=== PATIENT | male | born 1945 | race Caucasian/White ===

== ENCOUNTER 2018-03-10 07:46 | Inpatient (IN) | payer MEDICARE ==
--- NOTE | ~2018-03-10 | PR ---
[place], [place] PROGRESS NOTE NAME: KAYE JANG SR [facility] #: [id number] UNIT #: [id number] ROOM: [facility] DOCTOR: TATIANNA OTOOLE MD,JOHN BIRTHDATE: [birth year] DOS: 03/13/2018 SUBJECTIVE: The patient has remained in the hospital at this time noted intermittent mild tachycardia and also noted with hypertensive response. The patient's urinary output has improved with intravenous fluids. He has been sedated with intravenous Diprivan. Sedation was continued at this time with IV Diprivan. Feeding was continued. He had not been noted any respiratory problem from the last 24 hours. No further changes in the respiratory parameters were done in the last 12 hours. PHYSICAL EXAMINATION: GENERAL: The patient of 72 years of age who has been currently intubated on mechanical ventilator at this time. Orogastric tube is in place. Endotracheal tube is in place. NECK: Supple and obese. CARDIOVASCULAR: S1, S2 is audible. LUNGS: Noted with general reduction in the breath sounds in the lungs bilaterally. Scattered wheezing. ABDOMEN: Soft with severe obesity. Bowel sounds present. EXTREMITIES: The patient noted without any acute edema. MUSCULOSKELETAL: Without acute deformities. CENTRAL NERVOUS SYSTEM: Noted with a reactive normal mental status, reduction of sedation/sedation vacation. LABORATORY DATA: CBC this morning, WBC count 11.6, hemoglobin and hematocrit, platelet count were normal. Echocardiogram that was completed yesterday, results were reviewed. It was noted with a left ventricle ejection about 65%. Diastolic dysfunction could not be assessed. There were no valvular abnormalities noted. CMP this morning, glucose 349, BUN 45, creatinine 1.22. Total protein of 5.8, albumin 2.9. AST of 60. Culture of the endotracheal aspirate light growth of yeast. Arterial blood gas today, pH of 7.31, PCO2 of 63.9, PO of 79.6. Chest x-ray that was done this morning was reviewed, does not show any acute pulmonary abnormalities. IMPRESSION: 1. The patient has been noted severe acute hypercapnic and hypoxemic respiratory failure. 2. Acute exacerbation of chronic obstructive pulmonary disease. 3. Severe obstructive sleep apnea disorder. 4. Chronic moderate obesity. 5. Resolution of acute kidney injury. 6. History of nicotine dependence. 7. Intermittent tachycardia and hypertensive response. PLAN OF MANAGEMENT: Discontinue the IV fluid rather at this time because of the creatinine. Prevent any fluid overload and further fluid administration. Continue current dose of Solu-Medrol. Continue mechanical ventilator for the next 24 hours with the weaning will be started from tomorrow with further improvement as of course, the patient in the ventilatory status. Gradual improvement in ventilatory status was noted with improvement in hypercapnia and [place], [place] PROGRESS NOTE NAME: KAYE JANG SR UNIT #: [id number] ROOM: [facility] DOCTOR: TATIANNA OTOOLE MD,JOHN BIRTHDATE: [birth year] pH. Continuation all over the ventilator bundle management. Continue sedation to keep the patient comfortable. No change in antibiotic will be necessary. Other supportive therapy, plan and additional changes would be made based on progression of the illness. No changes for the patient in the nutrition support. Continue the medical management of hyperglycemia, which are noted, somewhat improved with adjustment. Continued with insulin and other medications for the medical management of severe hyperglycemia. Total time in pulmonary critical management for the patient was 33 minutes. JOHN CAMPUZANO MD CM:PNIFEOMA [id number] JOHN OTOOLE MD 03/13/18 1444 interface
--- NOTE | ~2018-03-10 | PROC NOTE ---
[place], [place] PROCEDURE NOTE [id number] UN[facility] #: [id number] ROOM: [facility] DOCTOR: TATIANNA OTOOLE MD,JOHN BIRTHDATE: [birth year] DOS: 03/15/2018 PROCEDURE: Fiberoptic bronchoscopy. PREOPERATIVE DIAGNOSIS: Excessive wheezing with thick secretion production from endotracheal tube. POSTOPERATIVE DIAGNOSIS: Removal of the moderate to large amount of thick mucus impaction of major airways. No endobronchial obstructive lesion. FINDINGS: Acute tracheobronchitis. PROCEDURE DESCRIPTION: Procedure for this patient done in the OR under general anesthesia. He was brought to the OR and placed in supine position. Conscious sedation administered by the Anesthesia Department. After achieving proper sedation, airway introduced in the mouth. Bronchoscope advanced to the airway into laryngeal area. Epiglottis and vocal cords were seen. The vocal cord was moving symmetrically with movements. Bronchoscope advanced to vocal cords into the tracheal lumen. Tracheal lumen noted with moderate amount of thick mucus secretion suctioned out with inflammatory changes of the tracheal mucosa was noted. Kellie was noted sharp. The right upper, right middle, left upper, lingula, lower lobe bronchi were noted with diffuse edema with inflammatory changes and friability. Mucous impaction noted in endobronchial tree. All of the subsegments cleared with the help of normal saline wash, sent for cultures. Procedure well tolerated by the patient without difficulty. Postoperative findings were discussed with the patient and family members in detail after completion of procedure. The bronchial washing sent for cultures. JOHN CAMPUZANO MD CM:PROCNOTE:PROCEDURE NOTE [id number] JOHN OTOOLE MD
--- NOTE | ~2018-03-10 | PR ---
[place], [place] PROGRESS NOTE NAME: KAYE JANG SR UNIT #: [id number] ROOM: 415 DOCTOR: JOHN LOYA MD BIRTHDATE: [birth year] DOS: 03/20/2018 SUBJECTIVE: He has been noted comfortable at this time. Continue well. The patient's current medical management. Denies symptoms of fever, chills, hemoptysis. The shortness of breath has been improving. He has been ambulating, increased dyspnea. The patient with shortness of breath. There was no wheezing reported. There were no symptoms of chest pain reported by the patient. He has been continued on the oxygen supplementation with the nasal cannula. OBJECTIVE: VITAL SIGNS: For the patient, which has been recorded showed the temperature was noted as normal. The respiratory rate of the patient recorded as 18, heart rate 88, blood pressure 112/64 this morning. Pulse oxygen saturation on 2 L nasal cannula was 98% saturation. HEENT: Chronic obesity. NECK: Supple and obese. CARDIOVASCULAR: S1, S2 audible. LUNGS: Without any crackles, rhonchi, or wheezing. ABDOMEN: Soft, nontender. Bowel sounds present. EXTREMITIES: No acute edema. IMPRESSION: Stable respiratory status was noted at the present time with progressive improvement acute on chronic severe hypoxemic and hypoxic respiratory failure, resolving muscle decondition debility secondary to acute illness. PLAN OF MANAGEMENT: Continuation of current therapy, plan of management at this time as in progress. The patient has been considered for possible home discharge today by the primary care attending. FOLLOWUP APPOINTMENT: The patient to be established with [facility] where he is normally followed up pulmonary disease. [place], [place] PROGRESS NOTE NAME: KAYE JANG SR UNIT #: [id number] ROOM: 415 DOCTOR: JOHN LOYA MD BIRTHDATE: [birth year] JOHN CAMPUZANO MD CM:PNTRANS [id number] JOHN OTOOLE MD 03/31/18 0835 interface
--- NOTE | ~2018-03-10 | PROC NOTE ---
[place], [place] PROCEDURE NOTE [id number] #: [id number] ROOM: [facility] DOCTOR: MALU ECHEVERRIA DO BIRTHDATE: [birth year] DOS: 03/11/2018 PROCEDURE: Emergent endotracheal intubation. PROCEDURE NOTE: A 72-year-old male currently admitted to the hospitalist service. I was consulted to assist in intubating the patient because of worsening respiratory failure. The procedure was performed by resident, Dr. Kaplan under my direct supervision. Rapid sequence intubation was performed using succinylcholine and rocuronium. A size 8 endotracheal tube was inserted into the trachea with direct visualization of the vocal cords. There was good color change on the CO2 detector. Breath sounds equal bilaterally. A chest x-ray is ordered for tube placement. No complications during the procedure. MALU ECHEVERRIA DO CM:PROCNOTE:PROCEDURE NOTE [id number] MALU ECHEVERRIA DO
--- NOTE | ~2018-03-10 | PR ---
[place], [place] PROGRESS NOTE NAME: KAYE JANG SR UNIT #: [id number] ROOM: 415 DOCTOR: JOHN LOYA MD BIRTHDATE: [birth year] DOS: 03/19/2018 PULMONARY PROGRESS NOTE SUBJECTIVE: The patient was noted comfortable at this time, sitting on the chair, ambulating, using oxygen supplementation and nasal cannula about 3-4 liters at rest. Denies symptoms of chest pain. Shortness breath, cough, and wheezing have been improving progressively. OBJECTIVE: VITAL SIGNS: Normal temperature, respiratory rate 18, heart rate 105, blood pressure 116/60. Pulse oxygen saturation recorded as 90% saturation on 3 liters nasal cannula. HEENT: Head was atraumatic. Eyes nonicterus. NECK: Supple. CARDIOVASCULAR SYSTEM: S1, S2 audible. LUNGS: The patient was noted without any wheezing or crackle. Breaths are noted [id number] diminished bilaterally. ABDOMEN: Soft, nontender. Bowel sounds present. EXTREMITIES: No acute change. LABORATORY DATA: CBC: WBC count 14.4, hemoglobin 16.2. IMPRESSION: 1. The patient with continued resolution and improvement in acute on chronic hypercapnic hypoxic respiratory failure. 2. Polycythemia, resolved because of chronic long-term hypoxia. 3. Nonadherence with the treatment. 4. Sleep apnea disorder, history of nicotine dependence, multiple other medical problems. 5. Debility, muscle deconditioning second chronic obstructive pulmonary disease, and acute exacerbation of respiratory failure, resolving. PLAN OF TREATMENT: The patient could be considered for home discharge whenever desired and stable from the pulmonary standpoint. Continue other therapy, plan of management. Abstinence from tobacco use was recommended. [place], [place] PROGRESS NOTE NAME: KAYE JANG SR UNIT #: [id number] ROOM: 415 DOCTOR: JOHN LOYA MD BIRTHDATE: [birth year] JOHN CAMPUZANO MD CM:PNTRANS [id number] JOHN OTOOLE MD 03/20/18 0016 interface
--- NOTE | ~2018-03-10 | CON ---
[place], [place] REPORT OF CONSULTATION NAME: KAYE JANG SR [facility] #: [id number] UNIT #: [id number] ROOM: [facility] DOCTOR: JOHN LOYA MD BIRTHDATE: [birth year] DOS: 03/11/2018 PULMONARY CONSULTATION, EVALUATION AND MANAGEMENT HISTORY OF PRESENT ILLNESS: The patient is currently noted on the BiPAP, is in distress and tachypnea. The history obtained partly from the son and partly from the patient. He has been noted with getting progressive increased respiratory symptoms for the past 2-3 days. He has developed symptoms of increased shortness of breath, which is occurring at rest. The patient was also reporting symptoms of coughing, which was noted nonproductive with excessive wheezing, tightness in the chest. He does complain of some pain in the retrosternal area, mild to moderate as well. The patient came into the hospital Emergency Room and further assessed. He has been admitted to the hospital for the medical management of acute on chronic hypercapnic and hypoxic respiratory failure. The patient has been managed in the Intensive Care Unit on the BiPAP. The BiPAP setting has been changed early couple of hours ago. He has been still noted with significant tachypnea with drowsiness, but does arouse the patient on vocal commands and answered some questions by nodding his head or the arm gestures. REVIEW OF SYSTEMS: CONSTITUTIONAL SYMPTOMS: Fatigue and tiredness noted without any symptoms of fever or chills. EYES: Denies burning, redness, or tenderness. EARS, NOSE, THROAT SYMPTOMS. Denies sore throat, hoarseness, otalgia, postnasal drainage, or epistaxis. CARDIOVASCULAR SYSTEM: Denies anginal pain. Pain of the lower extremity, mild edema of the lower extremity were reported. GASTROINTESTINAL SYMPTOMS: Denies dysphagia, nausea, vomiting, diarrhea, abdominal pain, hematemesis, melena, or hematochezia. GENITOURINARY SYMPTOMS: No dysuria, suprapubic pain, or hematuria. MUSCULOSKELETAL SYMPTOMS: No acute joint pain, redness, or tenderness. SKIN: No lesions or rashes reported. CENTRAL NERVOUS SYSTEM: General weakness. There were no symptoms of focal neurologic deficit or tingling sensation of the extremities reported. Remaining systems were reviewed. They were noted all negative. PAST MEDICAL HISTORY: 1. Known with history of end-stage COPD. 2. Chronic hypoxic respiratory failure, not adherent with the treatment of oxygen. 3. Chronic hypercapnic respiratory failure. 4. Morbid obesity. 5. Obstructive sleep apnea disorder. 6. Coronary artery disease. 7. Essential hypertension. 8. Hyperlipidemia. 9. Peripheral arterial disease. 10. Type 2 diabetes mellitus. [place], [place] REPORT OF CONSULTATION NAME: KAYE JANG SR UNIT #: [id number] ROOM: [facility] DOCTOR: TATIANNA OTOOLE MD,JOHN BIRTHDATE: [birth year] PAST SURGICAL HISTORY: 1. Cardiac catheterization and coronary stents insertion. 2. Right iliac artery stent placement and angioplasty. SOCIAL HISTORY: The patient lives at home. He is noted with tobacco use, that remains chronic, a pack of cigarettes a day since teenager with an active tobacco use. There was no history of alcohol use, illicit drug use reported. FAMILY HISTORY: The patient's father with complication of colon cancer. Mother from complications related to the heart disease. HOME MEDICATIONS: Listed use of Spiriva, simvastatin, potassium chloride, oxygen, metoprolol succinate, metformin, Imdur, aspirin, Symbicort, vitamin B12, and TriCor. DRUG ALLERGIES: No known drug allergies. PHYSICAL EXAMINATION: GENERAL: This is a 72-year-old white male who has been currently noted with tachypnea at rest, on the BiPAP at this time. The height recorded on admission by the nursing staff with height of 5 feet 6 inches, weight of 229, and BMI of 37. VITAL SIGNS: Normal temperature since admission in the last 12 hours, respiratory rate of 24-28, heart rate of 117, sinus tachycardia to 102, blood pressure 129/62-123/60. Pulse oxygen saturation was recorded as 88% on 3 liters nasal cannula on admission. Currently, the BiPAP 50% with oxygen saturation 95-96% saturation recorded. HEENT: Severe chronic obesity. NECK: Supple. Head was atraumatic. Eyes, no icterus. CARDIOVASCULAR SYSTEM: S1, S2 audible. LUNGS: Diffuse expiratory wheezing noted with poor air exchange in the lungs bilaterally. There were no crackles. ABDOMEN: Soft with chronic severe obesity. Bowel sounds present. There was no tenderness. EXTREMITIES: Mild edema in the lower extremities. VISIBLE SKIN: No lesions or rashes. MUSCULOSKELETAL: Without any acute deformities. CENTRAL NERVOUS SYSTEM: The patient is able to move extremities with the vocal commands. There was no gross focal deficit. Further exam is limited with current medical condition. LABORATORY DATA: The influenza A and B, nasal washing antigen negative. On admission, CMP on 03/10/2018 yesterday in the Emergency normal BUN and creatinine. Remaining CMP was normal. The lactic acid 1.0 yesterday. CBC yesterday; hemoglobin 17.7, hematocrit 53.9, WBC count normal, platelet count was normal. CBC this morning; WBC count 11.5, hemoglobin 17.3, hematocrit 55.2, platelet count was normal. BMP this morning; glucose 225, BUN and creatinine were normal, potassium 5.6. Follow up lactic acid 0.9. Arterial blood gas that was done first in the Emergency Room last night; pH of 7.26, pCO2 of 52, pO2 79 [place], [place] REPORT OF CONSULTATION NAME: LAINE TURNERKAYE Rodas UNIT #: [id number] ROOM: [facility] DOCTOR: TATIANNA OTOOLE MD,JOHN BIRTHDATE: [birth year] on 8 liters nasal cannula. Repeat arterial blood gas; pH of 7.12, pCO2 of 102, pO2 102 with BiPAP. BMP that was done this morning; glucose of 220, potassium 5.2 and CO2 of 34. There were repeated later on. Chest x-ray does not show any acute pulmonary infiltration. CT of the chest does not show any evidence of pulmonary embolism as well. Small infiltration with atelectasis noted in the right lower lobe for the patient without any evidence of gross major pulmonary infiltration. There were no findings of congestive heart failure or pulmonary edema. There were no visible pulmonary nodules. IMPRESSION: The patient who has been currently admitted to the hospital noted with: 1. Progressive severe acute on chronic hypercapnic and hypoxic respiratory failure with distress. 2. Sinus tachycardia related to current respiratory distress. 3. The patient with possibility of acute small pneumonia versus atelectasis of the right lower lobe was suspected. 4. Morbid obesity. 5. Polycythemia secondary to chronic hypoxia and hypoxemia. 6. Nonadherence with oxygen use. 7. Chronic moderate obesity. 8. Chronic nicotine dependence. 9. Obstructive sleep apnea disorder, nonadherence with the treatment as well. 10. Metabolic alkalosis secondary to chronic hypercapnia. PLAN OF MANAGEMENT: The patient's setting on the BiPAP has been changed 18/02 that will be continued for the next 2 hours. Arterial blood gas will be repeated if the patient would not show improvement in his respiratory status and remains in distress. The patient will be intubated and started on mechanical ventilation. The CBC needs to be monitored. The patient has been started on corticosteroids that will be changed to 40 mg q.6 hours in addition to Solu-Medrol 40 mg will be given now. Bronchodilator will be given every 4 hours. DVT prophylaxis. Nicotine replacement patches will be continued. Collect the sputum for Gram stain and culture if the patient is able to expectorate sputum. Use of the Rocephin and Zithromax should suffice the patient for the community-acquired infection including the pneumonia. Other therapy, treatment changes will be recommended based on progression of the illness. Assessment and management has been discussed with the patient's son at the bedside. Total time in pulmonary and critical care evaluation and management today was 42 minutes. [place], [place] REPORT OF CONSULTATION NAME: KAYE JANG SR UNIT #: [id number] ROOM: [facility] DOCTOR: JOHN LOYA MD BIRTHDATE: [birth year] JOHN CAMPUZANO MD CM:CONSTR:REPORT OF CONSULTATION 1419 03/12/18 0106 interface
--- NOTE | ~2018-03-10 | PR ---
[place], [place] PROGRESS NOTE NAME: KAYE JANG SR [facility] #: [id number] UNIT #: [id number] ROOM: 415 DOCTOR: TATIANNA OTOOLE MD,JOHN BIRTHDATE: [birth year] DOS: 03/14/2018 SUBJECTIVE: The patient remains on mechanical ventilation at this time. He has been continued on steroids, bronchodilators and assist control, volume control of mechanical ventilation. Sedation was continued. The patient morning was noted with partial improvement is nodding his head with the vocal commands. He has been noted some restlessness later on. The patient was started on CPAP 5 pressure support can, but after that the patient was noted with increased respiratory distress and hypoxia. He was switch back to the assist control, volume control, and mechanical ventilation after about 10 minutes. He has been resumed on sedation as well. MENTAL STATUS: The patient appeared to be normal at this time. The patient has not been reported any acute hemodynamic instability. Tolerating feeding. No other acute problems were noted in the last 24 hours as the patient continued on steroids, bronchodilators and the medical management of acute exacerbation of COPD. OBJECTIVE: VITAL SIGNS: For the patient which were recorded showed the temperature was noted as 99.6 degree Fahrenheit, respiration 18, heart rate 99, and blood pressure 144/70-144/70. Pulse oxygen saturation recorded as 95% on 40% oxygen. HEENT: Examination shows head was atraumatic. Eyes nonicterus. NECK: Supple. It was obese. The patient remain orally intubated. Gastric tube is in place. CARDIOVASCULAR: S1, S2 audible. LUNGS: Noted moderate expiratory wheezing in the lungs bilaterally. There were no crackles. ABDOMEN: Noted with chronic severe obesity. EXTREMITIES: Chronic changes without any significant edema at this time. VISIBLE SKIN: No lesions or rashes. MUSCULOSKELETAL: Noted without any acute deformities. CENTRAL NERVOUS SYSTEM: Appears to have a normal mental status. The patient current sedation vacation. LABORATORY DATA: The patient's arterial blood gas this morning, pH of 7.38, pCO2 of 57, pO2 of 75.4 with 40% oxygen assist control, volume control. Urine for Legionella antigen and strep antigen were negative. CMP this morning, BUN 38, creatinine was normal, glucose 314. Potassium 5.4. CO2 was 34. CBC of this morning, WBC count 11.6, hemoglobin and hematocrit normal. Platelet count was normal. IMPRESSION: 1. The patient will be currently noted with ongoing acute exacerbation of chronic obstructive pulmonary disease and acute tracheobronchitis. 2. Severe acute hypercapnic and hypoxemic respiratory failure as well. 2. Morbid obesity. 3. Obstructive sleep apnea disorder. 4. Nicotine dependence. 5. Resolving secondary polycythemia. [place], [place] PROGRESS NOTE NAME: KAYE JANG SR UNIT #: [id number] ROOM: [facility] DOCTOR: JOHN LOYA MD BIRTHDATE: [birth year] 6. Improving metabolic alkalosis. 7. Mild hyperkalemia as well. 8. Prerenal azotemia with elevation of the BUN related to the use of the corticosteroids. 9. Chronic moderate obesity. PLAN OF THERAPY: The patient will be continued on sedation and mechanical ventilation, assist control mode of mechanical ventilation, current failure with weaning attempt. The patient has been considered for the bronchoscopy done tomorrow morning to assess endobronchial tree and then to help with weaning process. Other supportive therapy, plan of management, care plan for the patient to be continued. Continuation ventilator bundle management. Continuation of the volume control, assist control, and mechanical ventilation. No change in the oxygen needs to be done. Other supportive therapy, plan of management and treatment to be made; otherwise, usual care, other supportive plan of therapies. Total time in pulmonary critical management for today's note was 37 minutes. JOHN CAMPUZANO MD CM:PNTRANS [id number] JOHN OTOOLE MD 03/31/18 0827 interface
--- NOTE | ~2018-03-10 | PR ---
[place], [place] PROGRESS NOTE NAME: KAYE JANG SR [facility] #: [id number] UNIT #: [id number] ROOM: [facility]- DOCTOR: TATIANNA OTOOLE MD,JOHN BIRTHDATE: [birth year] DOS: 03/16/2018 PULMONARY CRITICAL CARE EVALUATION AND MANAGEMENT SUBJECTIVE: The patient remains on the mechanical ventilator, noted with some hypoxia today, and oxygen supplementation was increased initially to 50%, later on increased to 45%, noted with pulse oxygen saturation 95-96% at the bedside. He has been noted without any other acute changes. There were no hemodynamic instability. Sedation was continued. Reduction in sedation for the patient's mental status has been noted appropriate with the sedation medication which was done today. He has not been noted any problem with the feeding as well. Bronchoscopy was completed yesterday successfully with removal of thick mucopurulent material from the patient's mucus impaction of major airways bilaterally. At noon, the patient had been assessed, was noted comfortable on mechanical ventilator, sedated gently at this time without any respiratory distress. PHYSICAL EXAMINATION: VITAL SIGNS: Which were recorded showed the temperature noted as normal, respiratory rate ranged between 18-22, heart rate of 106-102 with mild sinus tachycardia, blood pressure 139/75 to 112/73. Intake for the patient was recorded as 1.68 liters with 2500 mL, negative 800 mL. Pulse oxygen saturation on 45% oxygen was 95% saturation at noon later on. HEENT: Showed the patient remained orally intubated with gastric tube in place. NECK: Supple and obese. CARDIOVASCULAR: S1 and S2 audible. LUNGS: Decreased breath sounds in the lungs bilaterally. Mild expiratory wheezing. No crackles. ABDOMEN: Soft and obese. EXTREMITIES: The patient with chronic obesity and chronic changes without significant edema. MUSCULOSKELETAL: Without any acute deformities. CENTRAL NERVOUS SYSTEM: At this time, the patient is sedated. LABORATORY DATA: CBC this morning, WBC count 12.2, hemoglobin and hematocrit normal, platelet count was normal. CMP of this morning, glucose 333, BUN 39, creatinine was normal, potassium 5.6 and still elevated, CO2 of 36, albumin 2.2. Arterial blood gas with pH of 7.41, pCO2 of 55.4, pO2 78.3 on assist control, volume control, mechanical ventilation, 45% oxygen. Preliminary culture of bronchial washing with normal chandan, final culture results are pending. Gram stain of the bronchial washing of yesterday, many white blood cells and moderate budding yeast. Chest x-ray this morning was reviewed, shows endotracheal tube in proper position. There were no acute pulmonary infiltration or other acute abnormalities; hyperinflation and lung changes of COPD. IMPRESSION: 1. The patient with acute on chronic severe hypercapnic hypoxemic respiratory failure. 2. Acute exacerbation of chronic obstructive pulmonary disease. 3. Acute tracheobronchitis. [place], [place] PROGRESS NOTE NAME: [facility] [id number] UNIT #: [id number] ROOM: [facility] DOCTOR: TATIANNA OTOOLE MD,JOHN BIRTHDATE: [birth year] 4. Metabolic alkalosis, noted chronic. 5. Mild hyperkalemia also noted at this time. Exact etiology is unclear at the present time. 6. Chronic obesity as well with obstructive sleep apnea disorder. 7. Nicotine dependence. PLAN OF THERAPY: The patient will be started on CPAP of 5, pressure support of 10 at this time for 2 hours. Sedation will be gradually decreased and discontinued. Monitor mental status and physical status. Arterial blood gas will be assessed as well. Monitor hyperkalemia, which is noted mild. Other supportive therapy, plan of management, and care plan with additional treatment changes made based on progression of illness. Continue ventilator bundle management and nutrition support. Gradual reduction of steroids will be started, decrease Solu-Medrol to 40 mg b.i.d. dosing from today. Weaning will be continued with possible liberation of mechanical ventilation with use of BiPAP machine afterwards. Other therapy, plan of management and care for this patient with additional treatment changes will be made based on the progression of his illness. Assessment and management were discussed with the patient's 2 sons in detail at the bedside. Total time in pulmonary critical evaluation and management was 40 minutes. JOHN CAMPUZANO MD CM:PNTRANS [id number] JOHN OTOOLE MD 03/16/18 7354 interface
--- NOTE | ~2018-03-10 | EKG ---
[place], [place] ELECTROCARDIOGRAM REPORT NAME: KAYE JANG SR UNIT #: [id number] ROOM: [facility] DOCTOR: MICKY DRAFT REPORT BIRTHDATE: [birth year] [facility] Test Date: 2018-03-10 Test Time: 08:23:42 Pat Name: KAYE JANG Department: Room: [facility] Gender: M Sole Tacker: Haylie Marcos : 1945 Requested By: ESPERANZA ZHOU Order Number: [id number] Reading MD: Abe Light MD Measurements Intervals [place] Rate: 100 P: 103 ID: [id number] QRS: 174 QRSD: 160 T: 28 QT: 408 QTc: 527 Interpretive Statements Multifocal atrial tachycardia Right bundle branch block Electronically Signed On 03-11-2018 16:51:21 PST by Abe Light MD CM:EKGRPT:ELECTROCARDIOGRAM REPORT [id number] ESPERANZA WEEKS DRAFT REPORT ESPERANZA ZHOU MD
--- NOTE | ~2018-03-10 | PR ---
[place], [place] PROGRESS NOTE NAME: KAYE JANG SR [facility] #: [id number] UNIT #: [id number] ROOM: [facility] DOCTOR: TATIANNA OTOOLE MD,JOHN BIRTHDATE: [birth year] DOS: 03/17/2018 PULMONARY PROGRESS NOTE SUBJECTIVE: The patient has been successfully liberated from mechanical ventilator. BiPAP was used post-liberation mechanical ventilator and continued for several hours, kept n.p.o. until the assessment completed for the swallowing difficulty post-extubation. He has been noted awake and alert this morning, noted to be quite emotional since his is also treated in another hospital with acute medical illnesses. Shortness of breath has been improving. Denies symptoms of chest pain or fever. The cough has been noted mild. There were no symptoms of abdominal pain. Denies symptoms of nausea, vomiting, diarrhea, abdominal pain, hematemesis, melena, or hematochezia. General weakness and fatigue were noted. Remaining systems review were noted at the bedside and noted negative. OBJECTIVE: VITAL SIGNS: Normal temperature, respiratory rate of 20-18, heart rate of 84-108. Blood pressure 111/71-120/60. Pulse oxygen saturation was recorded on nasal cannula this morning on 3 liters 95%, BiPAP 95% saturation with 45% oxygen with the BiPAP. HEENT: Chronic obesity. NECK: Supple. Head was atraumatic. CARDIOVASCULAR: S1, S2 is audible. LUNGS: The patient was noted with decreased breath sounds in the lungs bilaterally. Mild expiratory wheezing. ABDOMEN: Soft and obese. EXTREMITIES: Chronic changes with venous stasis pigmentation changes as well. MUSCULOSKELETAL: Without acute deformity. CENTRAL NERVOUS SYSTEM: Cranial nerves 2-12 intact. LABORATORY DATA: The labs done on the patient today; WBC count 14.2, remaining CBC normal. Bronchoscopy final culture results with heavy growth of yeast. Arterial blood gas yesterday post-BiPAP of 2 hours; pH of 7.43, pCO2 50, pO2 68. The arterial blood gases with CPAP mode of mechanical ventilation prior to liberation of mechanical ventilation; pH of 7.44, pCO2 of 54, pO2 75. IMPRESSION: 1. Significant improvement continued for acute on chronic hypercapnic hypoxic respiratory failure, status post liberation of mechanical ventilator 24 hours ago. 2. Acute tracheobronchitis. 3. Hypercarbia metabolic alkalosis. 4. Secondary polycythemia with longstanding hypoxemia, possible lack use of oxygen at home settings, which has been also improved at this time. 5. Debility. PLAN OF MANAGEMENT: Continue use of BiPAP, not intubated during the day. Discontinue Springer catheter. Discontinue Peridex rinse. Continue current dose of steroids, bronchodilators. Physical therapy, occupational therapy [place], [place] PROGRESS NOTE NAME: KAYE JANG SR UNIT #: [id number] ROOM: [facility] DOCTOR: JOHN LOYA MD BIRTHDATE: [birth year] consultation. The patient may be transferred to the Telemetry floor later on the day if he does well. JOHN CAMPUZANO MD CM:PNTRANS [phone] JOHN OTOOLE MD 03/17/18 8000 interface
--- NOTE | ~2018-03-10 | PR ---
[place], [place] PROGRESS NOTE NAME: KAYE JANG SR [facility] #: [id number] UNIT #: [id number] ROOM: [facility] DOCTOR: JOHN LOYA MD BIRTHDATE: [birth year] DOS: 03/12/2018 PULMONARY CRITICAL CARE MANAGEMENT SUBJECTIVE: The patient was intubated shortly after the patient was seen and the arterial blood gases were reviewed, which shows very severe advanced hypercapnia and noted respiratory distress, tachypnea. The patient intubated and started on mechanical ventilation. Change in mechanical ventilation done, arterial blood gases assessment for the adequate improvement in the ventilation. The final change was made last evening, resulting in improvement in ventilatory status. The patient has been requiring high dose of intravenous Diprivan and also ordered Versed, combination for the sedation purposes. He has been noted comfortable at this time on the mechanical ventilator this morning. The patient has not been noted any symptoms of any new hemodynamic instability. The vasopressor were not needed. He has been continued on the ventilator bundle management post-intubation. The oxygenation was decrease gradually to maintain pulse ox 92% or greater. PHYSICAL EXAMINATION: VITAL SIGNS: In the last 24 hours the rectal temperature noted 100.2 degrees Fahrenheit, oral temperature 100.6 degree Fahrenheit, normal temperature intervening noted in the last 24 hours, respiratory rate of 16-22, heart rate of 119-105, mild tachycardia, blood pressure 107/51-128/60. Intake for the patient was noted as 1320, output 1100 mL. Pulse oxygen saturation recorded as 94% saturation with 45% oxygen supplementation. HEENT: Examination shows currently intubated, remains intubated at this time. Endotracheal tube is in place, used for the feeding. CARDIOVASCULAR: S1, S2 is audible. LUNGS: General reduction in the breath sounds with expiratory wheezing. There were no crackles. ABDOMEN: Chronic obesity was noted without any evidence of tenderness elicited. Bowel sounds were not present. EXTREMITIES: Chronic obesity. Minimal edema. MUSCULOSKELETAL: Noted without any acute deformities. CENTRAL NERVOUS SYSTEM: At this time, the patient was noted with mental status. Opening his eyes with the vocal commands. Reduction of sedation per nursing staff and sedation vacation. Intake is 1920 mL. Urinary output was noted a total of 1050 mL. LABORATORY DATA: Arterial blood gases that will done. The last arterial blood gas last evening pH of 7.20, pCO2 of 81, pO2 of 252 at that time with 70% oxygen. Arterial blood gas this morning, tidal volume 650 mL, rate of 16 and PEEP of 8, pH is 7.28, pCO2 of 65, pO2 of 101 with 45% oxygen. Endotracheal as per patient, many white blood cells, few epithelial cells, rare gram-positive cocci in pairs. CMP this morning, BUN 42, creatinine 2.06. Glucose of 405. Potassium of 5.4. Total protein of 6.1, magnesium 2.5. One view chest x-ray that was done this morning reviewed, endotracheal tube were noted in appropriate position. Basilar area of interstitial infiltration was noted. IMPRESSION: [place], [place] PROGRESS NOTE NAME: LAINE TURNERKAYE Clark [facility] #: [id number] UNIT #: [id number] ROOM: [facility] DOCTOR: TATIANNA OTOOLE MD,JOHN BIRTHDATE: [birth year] 1. The patient with severe [id number]-li-iqyfxrb hypercapnic and hypoxemic respiratory failure. 2. Acute exacerbation of chronic obstructive pulmonary disease. 3. The patient with morbid obesity. 4. Acute kidney injury secondary to intravascular volume depletion or other etiologies, remains in consideration including acute tubular necrosis to be excluded. 5. History of obstructive sleep apnea disorder. 6. History of chronic nicotine dependency. 7. Severe hyperglycemia related to the corticosteroids. 8. Absent bowel sounds. PLAN OF MANAGEMENT: The Solu-Medrol dose will be decreased this morning to q.8h, intravenous fluid to be continued with close monitoring and fluid overload. Bronchodilators to be continued. Continue current antibiotic, all the ventilator bundle management, and trophic feeding. Continuation of DVT prophylaxis. Other supportive plan of management continued as previously. Management of hyperglycemia, adjustment the insulin doses. Additional treatment changes will be made based on progression of illness. A KUB x-ray ultrasound of the abdomen will be obtained. The feeding will be held for this patient in case of ileus noted, otherwise it could be continued same level. There was a feeding of Pulmocare 20 mL daily. Pulmonary and critical evaluation and management. Total time in pulmonary critical care evaluation was 38 minutes. JOHN CAMPUZANO MD CM:PNTRANS [phone] JOHN OTOOLE MD 03/12/18 1856 interface
--- NOTE | ~2018-03-10 | PR ---
[place], [place] PROGRESS NOTE NAME: KAYE JANG SR [facility] #: [id number] UNIT #: [id number] ROOM: 415 DOCTOR: TATIANNA OTOOLE MD,JOHN BIRTHDATE: [birth year] DOS: 03/15/2018 PULMONARY AND CRITICAL CARE EVALUATION AND MANAGEMENT SUBJECTIVE: The patient remains on mechanical ventilator, was scheduled for bronchoscopy, planned to be done this morning. He has not been noted with hemodynamic instability. Respiratory lin, the patient remained on same mechanical ventilator settings, gradual improvement, ventilatory status was noted. He has been kept n.p.o. past midnight and bronchoscopy to be done today. He has not been noted with any hemodynamic instability, requiring vasopressor therapy. Solu-Medrol and other medical management continued previously. The patient is currently receiving Solu-Medrol 40 mg q.8 hours. He was also receiving the antibiotics. Ventilator bundle management also continued as well and the patient remained in the Intensive Care Unit. REVIEW OF SYSTEMS: Could not be completed as the patient is intubated. OBJECTIVE: VITAL SIGNS: Temperature of 99.2 degree Fahrenheit, normal temperature; respiratory rate of 16-22, heart rate of 99-101, mild tachycardia intermittently; blood pressure is 150/79-123/75. The intake of 1120 mL and output is 2950 mL. The pulse oxygen saturation on 40% oxygen, assist control, volume control, and mechanical ventilation is 92% saturation. HEENT: On examination, the patient is intubated. The patient is on endotracheal tube. NECK: Supple. Orogastric tube is in place. NECK: Obese. CARDIOVASCULAR SYSTEM: S1, S2 audible. LUNGS: Moderate decreased breath sounds, qrxj-jo-ubguzdsk expiratory wheezing continues to resolve gradually. ABDOMEN: Soft and obese. EXTREMITIES: Chronic obesity findings. MUSCULOSKELETAL: Without any acute deformities. CENTRAL NERVOUS SYSTEM: The patient noted with mental status, which has been noted improved, appear to follow some vocal commands with a sedation vacation and reduction of sedation. LABORATORY DATA: Reviewed. Arterial blood gas that was done this morning on assist control and volume control, pH of 7.41, pCO2 of 57, and pO2 of 69 on 40% oxygen. Blood culture, no bacterial growth from the 03/10/2018. CMP of this morning, BUN is 40, creatinine is normal, glucose is 353, potassium is 5.6, and CO2 is 35. Urine for Legionella antigen was noted negative. IMAGING DATA: The chest x-ray that was done, 1 view this morning was reviewed. Endotracheal tube in appropriate position was noted. Small infiltration was noted in the left lower lobe versus atelectasis. IMPRESSION: 1. The patient with acute tracheobronchitis, possibility of pneumonia and/or atelectasis in left lower lobe. [place], [place] PROGRESS NOTE [facility]: [facility] [id number] UNIT #: [id number] ROOM: [facility] DOCTOR: TATIANNA OTOOLE MD,JOHN BIRTHDATE: [birth year] 2. Severe acute hypercapnic hypoxemic respiratory failure secondary to acute exacerbation of chronic obstructive pulmonary disease. 3. Past nicotine dependence. 4. Morbid obesity with obstructive sleep apnea disorder. 5. Metabolic alkalosis noted secondary to chronic hypercarbia, which has been gradually improving. 6. Secondary polycythemia that was noted on admission, seemed to be resolved at this time. PLAN OF MANAGEMENT: Continuation of the current plan of management. Proceed with fibrobronchoscopy that was planned on this admission will be done today. Bronchodilator will be continued. The oxygen supplementation continued to be titrated to maintain pulse ox 92% or greater. Weaning the patient from mechanical ventilator after the bronchoscopy. Continue current dose of Solu-Medrol, dose reduction will be done most likely in the next 24 hours. No changes in antibiotics. Ventilator bundle management to be continued as previously. Nutritional support will be continued and trophic feeding. Assessment of medical management changes made based on progression of the illness. Total time in pulmonary and critical care evaluation and management today is 35 minutes. JOHN CAMPUZANO MD CM:PNTRANS [phone] JOHN OTOOLE MD 03/31/18 0831 interface
--- NOTE | ~2018-03-10 | PR ---
[place], [place] PROGRESS NOTE [id number] #: [id number] ROOM: 415 DOCTOR: TATIANNA OTOOLE MD,JOHN BIRTHDATE: [birth year] DOS: 03/18/2018 SUBJECTIVE: The patient was noted comfortable at this time, sitting on the chair this morning. Use the BiPAP last night and intermittent during the day. There were no symptoms of chest pain, coughing or any sputum expectoration, or abdominal pain. Denies any pain of the lower extremities. PHYSICAL EXAMINATION: VITAL SIGNS: Normal temperature, respiratory rate 19, heart rate 102, blood pressure 123/77, pulse oxygen saturation with BiPAP was 99% saturation. HEENT: Chronic obesity. NECK: Supple. CARDIOVASCULAR: S1, S2 is audible. LUNGS: The patient was noted without any crackles, moderate decreased breath sounds in the lungs bilaterally. ABDOMEN: Soft and obese. EXTREMITIES: The patient has no acute edema. IMPRESSION: 1. The patient with gradual but progressive resolution of acute exacerbation of chronic obstructive pulmonary disease, resolving acute on chronic hypercapnic hypoxic respiratory failure. 2. History of chronic nicotine dependence. 3. Debility and muscle deconditioning secondary to acute illness. PLAN OF MANAGEMENT: Decrease the Solu-Medrol dose to 40 mg daily. The patient could be transferred to a telemetry floor. Continue physical therapy and other plan of management and care plan. Usual care. Continue the BiPAP has been ordered. JOHN CAMPUZANO MD CM:PNTRANS [id number] JOHN OTOOLE MD 03/31/18 0833 interface
[~2018-03-10 07:46] MED LIST: ALBUTEROL0.09 MG/A2 INH; ASPIR-TRIN325 MG PO; ASPIRIN81 M1 PO; COUMADIN3 M1 PO; COUMADIN6 M1 PO; DELTASONE20 M1 PO; DIABETA1.25 MG PO; DIGOXIN0.125 MG PO; IMDUR30 MG PO; K-TAB10 MEQ PO; LANTUS SOL100 UNIT/1 SQ; LASIX20 MG PO; LOPRESSOR25 MG PO; MAG-OX 400400 MG PO; MAGOX 400400 MG PO; METFORMIN HCL1000 MG PO; METOPROLOL SR25 MG PO; NICODERM21 MG/24 H TD; OXYGEN; PREDNISONE10 MG PO; PROPAFENONE HC150 MG PO; PROVENTIL0.09 MG/AC IH; SIMVASTATIN80 MG PO; SPIRIVA -- 3018 MCG PO; SYMBICORT1 AE1 INH; TRICOR145 MG PO; VITAMIN B12500 MCG PO
--- NOTE | 2018-03-10 08:02 | NUR ---
PATIENT DENIES ANY WOUNDS AT THIS TIME A&OX4.
[2018-03-10 08:30] LABS: BASO % 0.4 % (0.0-1.0); EOS # 0.1 10*3/uL (0.0-0.4); EOS % 0.6 % (1.0-4.0); HEMATOCRIT 53.9 % (42.0-52.0); HEMOGLOBIN 17.7 g/dl (14.0-18.0); LYMPH # 1.6 10*3/uL (1.3-4.4); LYMPH % 19.3 % (27.0-41.0); MEAN CELL VOLUME 87.8 fl (80.0-94.0); MEAN CORPUSCULAR HGB 28.8 pg (27.0-31.0); MEAN CORPUSCULAR HGB CONC 32.8 g/dl (33.0-37.0); MONO # 1.2 10*3/uL (0.1-1.0); MONO % 14.3 % (3.0-9.0); NEUT # 5.5 10*3/uL (2.3-7.9); PLATELET COUNT AUTOMATED 154 10*3/uL (130-400); RED BLOOD COUNT 6.14 10*6/uL (4.50-5.90); RED CELL DISTRI WIDTH 14.4 % (0-14.5); WHITE BLOOD COUNT 8.4 10*3/uL (4.8-10.8)
[2018-03-10 08:43] LABS: ACT PARTIAL THROMBO TIME 29.9 SECONDS (20.8-31.5); INTERNATIONAL NORM RATIO 1.1 (2.0-3.5)
[2018-03-10 08:51] LABS: ALBUMIN 3.4 gm/dl (3.1-4.5); ALKALINE PHOSPHATASE 58 U/L (45-117); BUN 10 mg/dl (7-24); CHLORIDE 99 mmol/L (98-107); SGOT/AST 18 IU/L (3-35); SGPT/ALT 19 U/L (12-78); SODIUM 138 mmol/L (136-145); TOTAL PROTEIN 7.3 gm/dL (6.4-8.2)
[2018-03-10 08:52] LABS: TROPONIN I < 0.015 ng/ml (<0.045)
--- NOTE | 2018-03-10 08:57 | NUR ---
1GM OF ROCEPHIN NOT GIVEN BY THIS NURSE AT THIS TIME. CALLED PHARMACY. NOT COMPATIBLE WITH LACTATED RINGERS. AZITHROMYCIN STARTED AT THIS TIME.
[2018-03-10 09:27] VITALS: BP 123/60
--- NOTE | 2018-03-10 09:47 | NUR ---
WILL TAKE PATIENT TO 4TH FLOOR IN APPROXIMATELY 15 MINUTES. NURSE WAS BUSY AT TIME.
[2018-03-10 09:59] VITALS: BP 129/52
--- NOTE | 2018-03-10 09:59 | NUR ---
PATIENT TAKEN TO THE 4TH FLOOR BY THIS NURSE AND REPORT GIVEN AT BEDSIDE TO VY LAZCANO.
--- NOTE | 2018-03-10 10:30 | NUR ---
A 72, admitted to , under the services of BENEDICTO Hall DO with a diagnosis of COPD EXACERBATION, PNEUMONIA. Chief complaint is SOB. Patient arrived via ambulance from ER. Monitor applied. Initial assessment completed. Vital signs taken and recorded. BENEDICTO HALL DO notified of admission to the unit. Orders received. See assessment for past medical history, medications and allergies. Patient and/or family oriented to unit. [facility] visitation policy reviewed. Clothing/patient valuable form completed. VY FRIEDMAN
[2018-03-10 11:05] VITALS: BP 166/82
[2018-03-10 12:00] VITALS: BP 135/58
--- NOTE | 2018-03-10 12:02 | NUR ---
DR WILLIAM INFORMED OF UPDATED MED REC.
--- NOTE | 2018-03-10 13:36 | NUR ---
DR CAMPUZANO NOTIFIED OF NEW CONSULT.
--- NOTE | 2018-03-10 13:39 | NUR ---
DR CAMPUZANO NOTIFIED OF NEW CONSULT.
[2018-03-10 14:16] LABS: BILIRUBIN NEGATIVE (NEGATIVE); BLOOD TRACE-INTACT (NEGATIVE); CLARITY CLEAR (CLEAR); COLOR YELLOW (YELLOW); GLUCOSE 1+ (NEGATIVE); KETONE 1+ (NEGATIVE); LEUKO ESTERASE NEGATIVE (NEGATIVE); NITRITE NEGATIVE (NEGATIVE); PH 5.5 (5.0-9.0); UROBILINOGEN 0.2 E.U./dl (0.2-1.0)
[2018-03-10 14:28] LABS: BACTERIA 1+; EPITHELIAL CELLS 0-2; RBC 0-2 rbc/hpf (0-2); WBC 0-2 wbc/hpf (0-5)
[2018-03-10 16:00] VITALS: BP 134/58
--- NOTE | 2018-03-10 16:00 | NUR ---
PT'S BREATHING LABORED, 02 SAT 85% ON 5L NC, TACHYPNEIC. RESPIRATORY PLACED PT ON 8L HIGH FLOW O2. SAT'S UP TO 93%. DR WILLIAM PRESENT AND INFORMED ON PT'S STATUS. ORDERS RECEIVED.
[2018-03-10 16:35] LABS: ABG BASE EXCESS -4.8 mmol/L (-2.0-2.0); ABG HCO3 22.8 mmol/l (22-26); ABG O2 SATURATION 95.1 % (95-97); ARTERIAL BLOOD GAS PCO2 52.4 mmHg (35-45); ARTERIAL BLOOD GAS PH 7.261 (7.35-7.45); ARTERIAL BLOOD GAS PO2 79.5 mmHg (80-90)
--- NOTE | 2018-03-10 16:35 | NUR ---
PT OFF FLOOR FOR CTA AT THIS TIME.
--- NOTE | 2018-03-10 18:00 | NUR ---
RESPIRATORY HERE AT THIS TIME, BIPAP APPLIED. PT TOLERATING WELL.
[2018-03-10 20:00] VITALS: BP 124/61
--- NOTE | 2018-03-10 21:00 | NUR ---
PT AWAKE AND RESTING IN BED. PT STATES SHE IS NOT HAVING ANY PAIN, BUT IS REQUESTING A NICOTENE PATCH. CALL WAS MADE TO DR HURST TO REQUEST AN ORDER FOR A NICOTENE PATCH. BED LOW, CALL LIGHT WITHIN REACH.
[2018-03-11] VITALS: BP 129/62
[2018-03-11 06:33] LABS: BASO % 0.2 % (0.0-1.0); EOS % 0.1 % (1.0-4.0); HEMATOCRIT 55.2 % (42.0-52.0); HEMOGLOBIN 17.3 g/dl (14.0-18.0); LYMPH % 9.1 % (27.0-41.0); MEAN CELL VOLUME 90.6 fl (80.0-94.0); MEAN CORPUSCULAR HGB 28.4 pg (27.0-31.0); MEAN CORPUSCULAR HGB CONC 31.3 g/dl (33.0-37.0); MEAN PLATELET VOLUME 9.5 fl (9.6-12.3); MONO # 1.1 10*3/uL (0.1-1.0); MONO % 9.1 % (3.0-9.0); NEUT # 9.3 10*3/uL (2.3-7.9); NEUT % 80.9 % (47.0-73.0); PLATELET COUNT AUTOMATED 167 10*3/uL (130-400); RED BLOOD COUNT 6.09 10*6/uL (4.50-5.90); RED CELL DISTRI WIDTH 14.4 % (0-14.5); WHITE BLOOD COUNT 11.5 10*3/uL (4.8-10.8)
[2018-03-11 06:40] LABS: BUN 15 mg/dl (7-24); CHLORIDE 99 mmol/L (98-107); CHOLESTEROL 89 mg/dL (<200); CREATININE 0.93 mg/dL (0.70-1.30); PHOSPHOROUS 4.2 mg/dL (2.5-4.9); SODIUM 136 mmol/L (136-145); TRIGLYCERIDES 73 mg/dl (<150); VLDL CHOLESTEROL 15 mg/dL (6-40)
[2018-03-11 06:49] LABS: HDL CHOLESTEROL 30 mg/dl (40-60); LDL CHOLESTEROL 44 mg/dL (9-159); THYROID STIM HORMONE (HS) 0.208 uIU/ml (0.358-4.75)
[2018-03-11 07:05] LABS: POTASSIUM 5.6 mmol/L (3.5-5.1)
[2018-03-11 07:25] VITALS: BP 154/73
--- NOTE | 2018-03-11 07:25 | NUR ---
PT ARRIVED VIA BED POST RAPID REPSONSE. PT PLACED BACK ON BIPAP PREVIOUS SETTINGS. POX 95% ON 50% FIO2. I/E WHEEZING NOTED THROUGHOUT LUNG MCINTOSH. VSS. STAT CXR AND BLOOD WORK TAKEN. BREATHING TREATMENT TO BE GIVEN WHEN XRAY AND LAB FINISHED. PT RESTING BUT AWAKENS EASILY TO STIMULI AND IS ORIENTED X 3. NO PERIPHERAL EDEMA NOTED AT THIS TIME. IV NS RUNNING AT 100CC/HR. WILL CONT. TO MONITOR PT.
[2018-03-11 07:42] LABS: ABG BASE EXCESS -2.6 mmol/L (-2.0-2.0); ABG HCO3 31.6 mmol/l (22-26); ABG O2 SATURATION 96.5 % (95-97)
[2018-03-11 07:48] LABS: ARTERIAL BLOOD GAS PH 7.12 (7.35-7.45)
[2018-03-11 07:55] LABS: BUN 16 mg/dl (7-24); CHLORIDE 102 mmol/L (98-107); CREATININE 0.81 mg/dL (0.70-1.30); POTASSIUM 5.2 mmol/L (3.5-5.1); SODIUM 138 mmol/L (136-145)
--- NOTE | 2018-03-11 07:55 | NUR ---
PT NOTIFIED OF WORSENING ABG RESULTS AND POSSIBLE NEED FOR INTUBATION. PT REFUSED INTUBATION AT FIRST BUT WHEN I EXPLAINED THAT IF HIS BREATHING CONTINES TO GET WORSE AND DOES REFUSES THE VENTILATOR HE COULD POSSIBLY . I ASKED PT IF I COULD SPEAK WITH SOMEONE IN HIS FAMILY TO COME IN TO BE WITH HIM. HE STATED HIS IS IN ANOTHER HOSPITAL I WOULD HAVE TO SPEAK WITH HIS SON. I CALLED HIS SON RADHA AND UPDATED HIM ON PT'S CONDITION AND POSSIBLE NEED FOR INTUBTAION. RADHA STATED HE WILL BE IN SOON.
--- NOTE | 2018-03-11 08:00 | NUR ---
IV FLUIDS STOPPED PER ORDER.
[2018-03-11 08:06] LABS: VITAMIN D, 25-HYDROXY 10.8 ng/mL (30-100)
--- NOTE | 2018-03-11 08:14 | NUR ---
UPDATED DR CAMPUZANO ON ABG RESULTS. BIPAP SETTINGS ORDERED TO CHANGE TO 18/10 AND REPEAT ABG IN 2 HOURS. PT AND RESP. THERAPY NOTIFIED.
--- NOTE | 2018-03-11 08:48 | NUR ---
PT'S SON HERE. UPDATED HIM ON PT'S CONDITION AND PLAN OF CARE. NEFTALY'S QUESTIONS ANSWERED.
--- NOTE | 2018-03-11 09:00 | NUR ---
DR GALLEGO IN TO SPEAK WITH PT R/T PLAN OF CARE. PT DID AGREE TO INTUBATION IF DEEMED NECESARRY.
--- NOTE | 2018-03-11 09:15 | NUR ---
DR CAMPUZANO IN TO SEE PT. ORDERED FOR 40MG IV SOLUMEDROL NOW AND INCREASE TO Q6H.
--- NOTE | 2018-03-11 09:25 | NUR ---
IV SOLU-MEDROL GIVEN PER ORDER.
[2018-03-11 10:26] LABS: ABG BASE EXCESS -1.2 mmol/L (-2.0-2.0); ABG HCO3 33.6 mmol/l (22-26); ABG O2 SATURATION 94.5 % (95-97); ARTERIAL BLOOD GAS PO2 90.3 mmHg (80-90)
[2018-03-11 10:33] LABS: ARTERIAL BLOOD GAS PH 7.114 (7.35-7.45)
--- NOTE | 2018-03-11 11:00 | NUR ---
Infomed consent obtained from patient by Dr. WILLIAM for elective intubation. Patient intubated with 8 Latvian endotracheal tube orally X 1 attempts. Patient sedated PER DR ECHEVERRIA'S ORDERS Respiratory therapy at bedside. Crash cart with emergency drugs available. Endotracheal tube inflated with 10 cc's. Lungs auscultated for equality of breath sounds. Tube secured with Head gear at 26cm's. at level of LIP. Patient tolerated procedure WELL. Portable chest X-ray obtained and reviewed for tube placement. Patient connected to ventilator CMV mode, 475 tidal volume, 60% FIO2, 8 PEEP. YAMINI BRIZUELA
--- NOTE | 2018-03-11 11:30 | NUR ---
OG tube inserted and secured without difficulty. Patient TOLERATED PROCEDURE well. OGT CLAMPED UNTIL XRAY VERIFICATION.
--- NOTE | 2018-03-11 11:38 | NUR ---
#16 [place] OROZCO INSERTED PER HOSP.POLICY. PT TOLERATED PROCEDURE WELL.
[2018-03-11 12:00] VITALS: BP 144/56
--- NOTE | 2018-03-11 12:00 | NUR ---
FIO2 INCREASED TO 70% DUE TO POX 85%. PT'S SON UPDATED ON PT'S CONDITION AND PLAN OF CARE.
[2018-03-11 13:49] LABS: FREE T4 1.18 ng/dl (0.76-1.46)
[2018-03-11 13:51] LABS: TROPONIN I < 0.015 ng/ml (<0.045)
--- NOTE | 2018-03-11 14:40 | NUR ---
Arterial blood gases drawn from left radial after 1 attempt. The procedure was explained to the patient. The Luis's test was performed with satisfactory results. The artery was palpated. Zuoqcto-ylcekhwm-djavwyx prep to site. The specimen was obtained and sent to the lab on ice. Digital pressure applied x 5 minutes. Pressure dressing applied. No bleeding or hematoma. Pulses equal bilaterally. YAMINI BRIZUELA
[2018-03-11 14:53] LABS: ABG BASE EXCESS -2.3 mmol/L (-2.0-2.0); ABG HCO3 35.1 mmol/l (22-26)
[2018-03-11 14:58] LABS: ARTERIAL BLOOD GAS PH 7.076 (7.35-7.45)
--- NOTE | 2018-03-11 15:08 | NUR ---
DR CAMPUZANO UPDATED ON ABG RESULTS. DR CAMPUZANO ASKED FOR RESP. THERAPIST TO CALL HIM. I WILL NOTIFY RESP. THERAPY.
[2018-03-11 16:00] VITALS: BP 135/57
[2018-03-11 16:46] LABS: ABG BASE EXCESS -0.8 mmol/L (-2.0-2.0); ABG HCO3 32.3 mmol/l (22-26); ABG O2 SATURATION 98.1 % (95-97)
[2018-03-11 16:49] LABS: ARTERIAL BLOOD GAS PCO2 94.7 mmHg (35-45); ARTERIAL BLOOD GAS PH 7.158 (7.35-7.45)
--- NOTE | 2018-03-11 16:56 | NUR ---
IV VERSED GIVEN TO PT FOR HIS AGITATION AND RESTLESSNESS. PT'S FAMILY AT BEDSIDE. UPDATED THEM ON PT'S CONDITION AND PLAN OF CARE.
--- NOTE | 2018-03-11 17:08 | NUR ---
EARLIER VERSED EFFECTIVE.
[2018-03-11 17:42] LABS: CREATININE 1.44 mg/dL (0.70-1.30); POTASSIUM 5.8 mmol/L (3.5-5.1)
[2018-03-11 20:00] VITALS: BP 111/53
[2018-03-11 20:00] LABS: ABG BASE EXCESS -0.7 mmol/L (-2.0-2.0); ABG HCO3 32.5 mmol/l (22-26); ABG O2 SATURATION 99.4 % (95-97)
[2018-03-11 20:06] LABS: ARTERIAL BLOOD GAS PCO2 97.1 mmHg (35-45); ARTERIAL BLOOD GAS PH 7.153 (7.35-7.45)
--- NOTE | 2018-03-11 20:34 | NUR ---
1999 RESTING IN BED ON LEFT SIDE. HOB ELEVATED. SIDE RAILS UP X'S 2. FAMILY AT BEDSIDE. NPO. ORAL AND EYE CARE DONE. ET SECURE TO VENT. SUCTIONED ORALLY AND VIA ET. SEE INTERVENTION SCREEN. PULSE OX 99% ON 70% FIO2 VIA VENT. DIPRIVAN CONT FOR SEDATION. IV FLUIDS STARTED AT 80CC/HR. WRIST RESTRAINTS INTACT BILATERALLY. CIRCULATION ADEQUATE. OGT INTACT. TF MAINTAINED AT 20CC/HR. PLACEMENT CONFIRMED WITH AIR BOLUS/AUSCULTATION. NO RESIDUAL NOTED. KAYEXALATE GIVEN VIA OGT ORDERED. OROZCO PATENT AND DRAINING CLEAR YELLOW URINE. 2014 ABG RESULTS OBTAINED AND DR. CAMPUZANO CALLED PER RT. ORDERS RECEIVED. TV INCREASED TO 650 ORDERED. 2029 RESTLESS AND MOVING ABOUT IN THE BED. REPOSITIONED ON BACK. VERSED 5M IV GIVEN AND EFFECTIVE.
[2018-03-11 21:35] LABS: ABG BASE EXCESS 0.3 mmol/L (-2.0-2.0); ABG HCO3 31.1 mmol/l (22-26); ABG O2 SATURATION 99.4 % (95-97); ARTERIAL BLOOD GAS PH 7.209 (7.35-7.45)
[2018-03-11 21:37] LABS: ARTERIAL BLOOD GAS PCO2 81.4 mmHg (35-45)
--- NOTE | 2018-03-11 21:40 | NUR ---
DR. CAMPUZANO CALLED WITH [facility] ABG RESULTS. NO NEW ORDERS RECEIVED.
--- NOTE | 2018-03-11 22:31 | NUR ---
2130 COMPLETE BED BATH GIVEN AND LINENS CHANGED. FIO2 DECREASED TO 50%. PULSE OX 98%. REPOSITIONED.
[2018-03-12] VITALS (12 sets, daily range): BP systolic 99–130; BP diastolic 51–74
--- NOTE | 2018-03-12 00:23 | NUR ---
REMAINS ADEQUATELY SEDATED ON DIPRIVAN GTT AT 40MICS. PULSE OX 97% ON 50% FIO2 VIA VENT.
[2018-03-12 01:24] LABS: CREATININE 2.22 mg/dL (0.70-1.30); POTASSIUM 5.3 mmol/L (3.5-5.1)
--- NOTE | 2018-03-12 03:46 | NUR ---
0330 VERSED 5MG IV GIVEN FOR RESTLESSNESS AND EFFECTIVE.
--- NOTE | 2018-03-12 04:33 | NUR ---
0415 PT HR IS ELEVATED 110-130/ WILL MONITOR. PT HAS HX OF A-FIB. 0425 DR. TORIBIO HERE AND AWARE. RECTAL TEMP DONE AND IS 99.4. ORDERS RECEIVED.
[2018-03-12 05:51] LABS: BASO % 0.2 % (0.0-1.0); HEMATOCRIT 50.1 % (42.0-52.0); HEMOGLOBIN 15.4 g/dl (14.0-18.0); LYMPH # 0.8 10*3/uL (1.3-4.4); LYMPH % 6.9 % (27.0-41.0); MEAN CELL VOLUME 91.3 fl (80.0-94.0); MEAN CORPUSCULAR HGB 28.1 pg (27.0-31.0); MEAN CORPUSCULAR HGB CONC 30.7 g/dl (33.0-37.0); MEAN PLATELET VOLUME 9.8 fl (9.6-12.3); MONO # 1.3 10*3/uL (0.1-1.0); MONO % 10.6 % (3.0-9.0); NEUT # 9.9 10*3/uL (2.3-7.9); NEUT % 81.6 % (47.0-73.0); PLATELET COUNT AUTOMATED 167 10*3/uL (130-400); RED BLOOD COUNT 5.49 10*6/uL (4.50-5.90); RED CELL DISTRI WIDTH 14.6 % (0-14.5); WHITE BLOOD COUNT 12.1 10*3/uL (4.8-10.8)
[2018-03-12 06:04] LABS: ALBUMIN 3.1 gm/dl (3.1-4.5); CREATININE 2.06 mg/dL (0.70-1.30); PHOSPHOROUS 3.3 mg/dL (2.5-4.9); POTASSIUM 5.4 mmol/L (3.5-5.1); TOTAL PROTEIN 6.1 gm/dL (6.4-8.2)
--- NOTE | 2018-03-12 06:14 | NUR ---
RESTING IN BED IN SUPINE POSITION WITH HOB ELEVATED 30 DEGREES. TUBE FEEDING CONT VIA OGT. DIPRIVAN GTT MAINTAINED AT 40MICS. SEE INTERVENTION FOR Q2H BP'S. MONITOR REMAINS NSR/A-FIB WITH A HR FROM 100-115. IV FLUIDS CONT. NO DISTRESS NOTED. CONDITION GUARDED.
--- NOTE | 2018-03-12 07:05 | NUR ---
Shift chart check completed.24 HR chart check completed.
[2018-03-12 07:38] LABS: ABG BASE EXCESS 1.3 mmol/L (-2.0-2.0); ABG HCO3 29.7 mmol/l (22-26); ABG O2 SATURATION 97.6 % (95-97); ARTERIAL BLOOD GAS PCO2 65.1 mmHg (35-45); ARTERIAL BLOOD GAS PH 7.282 (7.35-7.45)
--- NOTE | 2018-03-12 09:12 | NUR ---
ON ASSESSMENT PATIENT REMAINS SEDATED, ON VENTILATOR. DIPRIVAN AT 40MCG/KG/MIN. SEDATION VACATION HELD AND WITHIN 5 MINUTES HE BECAME TACHYPNEIC, AND AGITATED. DIPRIVAN RESUMED AT PREVIOUS RATE. OGT IN PLACE WITH PULMOCARE AT 20/HR. DR CAMPUZANO HAS VISITED. SHOWED HIM RED AREA OF ABDOMEN WHICH I HAVE OUTLINED WITH MARKER. OROZCO PATENT IRIS URINE. FIO2 WAS TITRATED FROM 45% TO 35% THEN BACK TO 40% TO MAINTAIN PULSE OX >92%. SEE ALL APPROPRIATE INTERVENTIONS.
--- NOTE | 2018-03-12 09:59 | NUR ---
ULTRASOUND OF ABDOMEN COMPLETE. DR MORENO HAS ROUNDED
--- NOTE | 2018-03-12 11:13 | NUR ---
case management did not see patient due to being on vent. discharge plan undecided at this time
--- NOTE | 2018-03-12 12:53 | NUR ---
DR GALLEGO UPDATED ON RECENT RADIOLOGY RESULTS. PT HAVING BEDSIDE ECHOCARDIOGRAM AT THIS TIME. SEE ALL APPROPRIATE INTERVENTIONS.
--- NOTE | 2018-03-12 13:53 | NUR ---
DR VELAZQUEZ'S OFFICE NOTIFIED OF CONSULTATION. DR VELAZQUEZ WAS WITH A PATIENT. CALL BACK NUMBER PROVIDED. FAMILY AT BEDSIDE.
--- NOTE | 2018-03-12 15:07 | NUR ---
PHYSICAL THERAPY Patient on vent, not appropriate for PT at this time. Will check status at a later date. Thank you for this referral. Kiya Oh,PT
--- NOTE | 2018-03-12 15:56 | NUR ---
SON'S HAVE GONE HOME. PT RESTING EASILY. DIPRIVAN TITRATED DOWN TO 30MCG/KG/MIN HE'S VERY SLEEPY AND TAKES CONSIDERABLE VERBAL STIMULI.
--- NOTE | 2018-03-12 16:50 | NUR ---
DIPRIVAN BACK UP TO 35MCG/KG/MIN AND IV DOSE OF VERSED FOR COUGHING AND RESTLESSNESS. BROTHER AT THE BEDSIDE.
--- NOTE | 2018-03-12 18:26 | NUR ---
DR VELAZQUEZ WAS IN TO VISIT. NO NEW ORDERS.
--- NOTE | 2018-03-12 18:51 | NUR ---
24 HR chart check completed.
--- NOTE | 2018-03-12 20:11 | NUR ---
PATIENT INTUBATED, ON SEDATION, NO DISTESS NOTED. VITAL SIGNS STABLE. PATIENT SOTERO AROUSE ON SEDATION @ 35MCG.
--- NOTE | 2018-03-12 21:00 | NUR ---
FAMILY IN TO VISIT PATIENT, UPDATED ON PATIENT'S STATUS.
[2018-03-13] VITALS (12 sets, daily range): BP systolic 119–176; BP diastolic 50–117
--- NOTE | 2018-03-13 03:54 | NUR ---
PATIENT RESTLESS IN BED, ON VENT, VERSED GIVEN. EFFECTIVE IMMEDIATELY. WILL CONTINUE TO MONITOR.
[2018-03-13 05:30] LABS: ALBUMIN 2.9 gm/dl (3.1-4.5); BUN 45 mg/dl (7-24); CHLORIDE 106 mmol/L (98-107); CREATININE 1.22 mg/dL (0.70-1.30); PHOSPHOROUS 2.9 mg/dL (2.5-4.9); POTASSIUM 5.1 mmol/L (3.5-5.1); SGOT/AST 60 IU/L (3-35); SGPT/ALT 22 U/L (12-78); SODIUM 145 mmol/L (136-145); TOTAL PROTEIN 5.8 gm/dL (6.4-8.2)
[2018-03-13 05:39] LABS: BASO % 0.1 % (0.0-1.0); HEMATOCRIT 48.1 % (42.0-52.0); LYMPH # 1.3 10*3/uL (1.3-4.4); LYMPH % 11.4 % (27.0-41.0); MEAN CELL VOLUME 89.9 fl (80.0-94.0); MEAN CORPUSCULAR HGB CONC 31.2 g/dl (33.0-37.0); MEAN PLATELET VOLUME 10.1 fl (9.6-12.3); MONO # 1.2 10*3/uL (0.1-1.0); MONO % 10.5 % (3.0-9.0); NEUT % 77.5 % (47.0-73.0); PLATELET COUNT AUTOMATED 163 10*3/uL (130-400); RED BLOOD COUNT 5.35 10*6/uL (4.50-5.90); RED CELL DISTRI WIDTH 14.7 % (0-14.5); WHITE BLOOD COUNT 11.6 10*3/uL (4.8-10.8)
[2018-03-13 05:40] LABS: ALKALINE PHOSPHATASE 47 U/L (45-117); THYROID STIM HORMONE (HS) 0.136 uIU/ml (0.358-4.75)
[2018-03-13 07:24] LABS: ABG BASE EXCESS 3.8 mmol/L (-2.0-2.0); ABG HCO3 31.6 mmol/l (22-26); ABG O2 SATURATION 94.5 % (95-97); ARTERIAL BLOOD GAS PCO2 63.9 mmHg (35-45); ARTERIAL BLOOD GAS PH 7.317 (7.35-7.45); ARTERIAL BLOOD GAS PO2 79.6 mmHg (80-90)
--- NOTE | 2018-03-13 08:44 | NUR ---
ON ASSESSMENT PATIENT WAS TACHYCARDIC, DIOPHORETIC. REPOSITIONED. FAN PLACED IN ROOM. HIS AM DOSE OF LOPRESSOR VIA OGT AND AN IV DOSE OF VERSED AND THESE ARE EFFECTIVE. PROPOFOL CONTINUES AT 35MCG/KG/MIN. SALINE AT 100/HR. OROZCO PATENT YELLOW URINE. OGT WITH TUBE FEEDING AT 20/HR. ABDOMEN IS VERY SILENT.
--- NOTE | 2018-03-13 10:32 | NUR ---
Patient remains on vent and not appropriate for Occupational Therapy today. Charley Farah OTR/L
--- NOTE | 2018-03-13 13:59 | NUR ---
SON HAS ARRIVED. DIPRIVAN OFF FOR SEDATION VACATION. IN CLOSE OBSERVATION. RESTRAINTS INTACT.
--- NOTE | 2018-03-13 14:30 | NUR ---
PT WOKE UP ENOUGH TO OPEN HIS EYES FOR SON AND SISTER, NODDED HIS HEAD TO SOME QUESTIONS. SHOOK HIS HEAD "NO" TO HAVING ANY PAIN. STARTED TRYING TO SIT UP AND REACH FOR ETT. DIPRIVAN RESUMED AT PREVIOUS RATE.
--- NOTE | 2018-03-13 14:43 | NUR ---
Shift chart check completed.24 HR chart check completed.
--- NOTE | 2018-03-13 15:59 | NUR ---
PT WAS SHOWING INCREASED RESTLESSNESS, REPOSITIONED, IV VERSED GIVEN WHICH WAS IMMEDIATELY EFFECTIVE. SEE ALL APPROPRIATE INTERVENTIONS.
--- NOTE | 2018-03-13 16:03 | NUR ---
Pt on vent, not appropriate for PT at this time. Check again at later time. Annette Holbrook, PT.
--- NOTE | 2018-03-13 18:30 | NUR ---
APPEARS TO BE COMFORTABLE AT PRESENT. DIPRIVAN CONTINUES AT 35MCG/KG/MIN.
--- NOTE | 2018-03-13 20:00 | NUR ---
PATIENT REMAINS INTUBATED AND SEDATED WITH DIPRIVAN GTT. PRN VERSED. POX 96% FIO2 40%. SUCTIONED FOR SCNT AMNT YELL SPUTUM. LUNGS DIMINISHED BUT CLEAR. TF PULMOCARE RUNNING AT 20CC/HR. BOWEL SOUNDS X 4. MILD EDEMA NOTED TO HANDS.
--- NOTE | 2018-03-13 22:15 | NUR ---
MEDICATED WITH PRN VERSED WITH EFFECTIVENESS.
[2018-03-14] VITALS (12 sets, daily range): BP systolic 115–144; BP diastolic 56–80
[2018-03-14 06:10] LABS: BASO % 0.2 % (0.0-1.0); EOS % 0.1 % (1.0-4.0); HEMATOCRIT 51.7 % (42.0-52.0); LYMPH # 2.1 10*3/uL (1.3-4.4); LYMPH % 18.2 % (27.0-41.0); MEAN CELL VOLUME 90.7 fl (80.0-94.0); MEAN CORPUSCULAR HGB 28.1 pg (27.0-31.0); MEAN CORPUSCULAR HGB CONC 30.9 g/dl (33.0-37.0); MEAN PLATELET VOLUME 10.1 fl (9.6-12.3); MONO % 8.6 % (3.0-9.0); NEUT # 8.4 10*3/uL (2.3-7.9); NEUT % 72.5 % (47.0-73.0); PLATELET COUNT AUTOMATED 170 10*3/uL (130-400); RED CELL DISTRI WIDTH 14.6 % (0-14.5); WHITE BLOOD COUNT 11.6 10*3/uL (4.8-10.8)
[2018-03-14 06:28] LABS: ALBUMIN 2.9 gm/dl (3.1-4.5); BUN 38 mg/dl (7-24); CHLORIDE 106 mmol/L (98-107); POTASSIUM 5.4 mmol/L (3.5-5.1); SODIUM 145 mmol/L (136-145)
[2018-03-14 06:33] LABS: ALKALINE PHOSPHATASE 57 U/L (45-117); CREATININE 0.95 mg/dL (0.70-1.30); PHOSPHOROUS 2.6 mg/dL (2.5-4.9); SGOT/AST 54 IU/L (3-35); SGPT/ALT 31 U/L (12-78); TOTAL PROTEIN 6.1 gm/dL (6.4-8.2)
[2018-03-14 08:11] LABS: ABG BASE EXCESS 6.8 mmol/L (-2.0-2.0); ABG HCO3 33.6 mmol/l (22-26); ABG O2 SATURATION 96.6 % (95-97); ARTERIAL BLOOD GAS PCO2 57.4 mmHg (35-45); ARTERIAL BLOOD GAS PH 7.386 (7.35-7.45); ARTERIAL BLOOD GAS PO2 75.4 mmHg (80-90)
--- NOTE | 2018-03-14 08:25 | NUR ---
ADALBERTO SCOTT STOPPED FOR "SEDATION VACATION."
--- NOTE | 2018-03-14 08:44 | NUR ---
PHYSICAL THERAPY Patient on vent, not appropriate for PT at this time. Will check status at a later date. Thank you for this referral. Kiya Oh,PT
--- NOTE | 2018-03-14 08:49 | NUR ---
DR CAMPUZANO IN TO SEE PT. CHANGED VENT SETTINGS TO CPAP BECAUSE PT IS AWAKE AND OBEYING SIMPLE COMMANDS.
--- NOTE | 2018-03-14 08:54 | NUR ---
Patient not appropriate as he is on mechanical ventilation. Charley Farah OTR/l
--- NOTE | 2018-03-14 09:00 | NUR ---
DR CAMPUZANO MADE AWARE THAT PT'S HR ELEVATED 130'S AND RESP RATE 28-30. PT PLACED BACK TO CMV SETTINGS. IV SEDATION RESTARED AT PREVIOUS RATE OF 50MICS. PT'S FAMILY IN TO VISIT AND UPDATED ON PLAN OF CARE FOR BRONCHOSCOPY IN THE AM.
--- NOTE | 2018-03-14 09:05 | NUR ---
IV VERSED GIVEN TO PT FOR HIS AGITATION AND RESTLESNESS.
--- NOTE | 2018-03-14 09:15 | NUR ---
PT RESTING. EARLIER VERSED EFFECTIVE.
--- NOTE | 2018-03-14 12:55 | NUR ---
PT RESTING. FAMILY AT BEDSIDE UPDATED ON PT'S CONDITION AND PLAN OR CARE.
--- NOTE | 2018-03-14 16:30 | NUR ---
IV VERSED GIVEN PER PRN ORDER R/T PT'S AGITATION AND RESTLESNESS. INFORMED CONSENT FOR ANESTHESIA AND BRONCHOSCOPY SIGNED BY PT'S SON ISMA.
--- NOTE | 2018-03-14 20:00 | NUR ---
PATIENT SEDATED/INTUBATED POX 93% FIO2 40%. SUCTIONED FOR YELL SPUTUM. LUNGS DIMINISHED WITH SCATTERED RHONCI. ABDOMEN OBESE HYPOACTIVE BOWEL SOUNDS. TUBE FEED PULMOCARE INFUSING @ 20CC/HR. EXTREMITIES HAVE TRACE EDEMA. OROZCO PATENT FOR LIGHT IRIS URINE.
--- NOTE | 2018-03-14 22:34 | NUR ---
PATIENT BATHED AND BED CHANGED. DURING BATH L ARM SKIN TEAR. DR. GUARDADO AND MEDICAL LOGISTICS SPECIALIST SIOBHAN GARZA.
[2018-03-15] VITALS (12 sets, daily range): BP systolic 109–150; BP diastolic 45–80
[2018-03-15 05:49] LABS: ALBUMIN 2.9 gm/dl (3.1-4.5); ALKALINE PHOSPHATASE 54 U/L (45-117); BUN 40 mg/dl (7-24); CHLORIDE 102 mmol/L (98-107); CREATININE 1.01 mg/dL (0.70-1.30); PHOSPHOROUS 3.3 mg/dL (2.5-4.9); POTASSIUM 5.6 mmol/L (3.5-5.1); SGOT/AST 33 IU/L (3-35); SGPT/ALT 25 U/L (12-78); SODIUM 143 mmol/L (136-145); TOTAL PROTEIN 6.1 gm/dL (6.4-8.2)
[2018-03-15 06:10] LABS: BASO % 0.2 % (0.0-1.0); HEMATOCRIT 51.5 % (42.0-52.0); HEMOGLOBIN 16.2 g/dl (14.0-18.0); LYMPH # 2.2 10*3/uL (1.3-4.4); LYMPH % 20.1 % (27.0-41.0); MEAN CELL VOLUME 89.4 fl (80.0-94.0); MEAN CORPUSCULAR HGB 28.1 pg (27.0-31.0); MEAN CORPUSCULAR HGB CONC 31.5 g/dl (33.0-37.0); MEAN PLATELET VOLUME 10.2 fl (9.6-12.3); MONO # 0.8 10*3/uL (0.1-1.0); NEUT # 7.9 10*3/uL (2.3-7.9); NEUT % 71.9 % (47.0-73.0); PLATELET COUNT AUTOMATED 181 10*3/uL (130-400); RED BLOOD COUNT 5.76 10*6/uL (4.50-5.90); RED CELL DISTRI WIDTH 14.3 % (0-14.5)
--- NOTE | 2018-03-15 07:30 | NUR ---
REMAINS INTUBATED, ON DIPROVANAT 50 AND IS RESTLESS WITH TAHT, VERSED GIVEN JUST PRIOR TO TURNING TO ASSIST COOPERATION WITH NURSING CARE, SKIN INTACT, TEDS/HEEL ELEVATORS, ETT SECURE, PT ASSISTING VENT, DIPROVAN AT 50 MCG, TURNED AND REPOSITIOMSED
--- NOTE | 2018-03-15 08:31 | NUR ---
VERSED NEEDED AND HAS BEEN EFFECTIVE FOR RESTLESSNESS
[2018-03-15 08:36] LABS: ABG BASE EXCESS 9.1 mmol/L (-2.0-2.0); ABG HCO3 36.3 mmol/l (22-26); ABG O2 SATURATION 95.2 % (95-97); ARTERIAL BLOOD GAS PCO2 57.7 mmHg (35-45); ARTERIAL BLOOD GAS PH 7.412 (7.35-7.45); ARTERIAL BLOOD GAS PO2 69.2 mmHg (80-90)
--- NOTE | 2018-03-15 10:25 | NUR ---
SEDATION TURNED OFF TO ASSESS MENTAL STATUS
--- NOTE | 2018-03-15 10:55 | NUR ---
PT AWAKE, ALERT NODS HEAD APPROPIATELY SEDATION RESUMED-PT TO OR
--- NOTE | 2018-03-15 14:50 | NUR ---
VERSED FOR CONTINUES ADEQUATE SEDATION
--- NOTE | 2018-03-15 16:17 | NUR ---
ASSESSMENT UNCHANGED, REPOSITIONED FOR COMFORT
--- NOTE | 2018-03-15 17:03 | NUR ---
VERSED PER FAMILY REQUEST PT "LOOKS UNCOMFORTABLE"
--- NOTE | 2018-03-15 20:00 | NUR ---
PATIENT SEDATED INTUBATED. DIPRIVAN GTT AT MAX IS NOT ADEQUATE. PRN VERSED HAS BEEN NEEDED MORE OFTEN. VERY RESTLESS UNCOMFORTABLE MOVING ALL 4 EXT. HE IS DIAPHORETIC AND PURPLE FACED. POX 93% FIO2 IS UP TO 50%. SUCTIONED FOR SCANT AMOUNT YELLOW SPUTUM. LUNGS DIMINISHED. ABDOMEN IS SOFTLY DISTENDED VERY HYPOACTIVE BOWEL SOUNDS. NO DOCUMENTED BM SINCE ADMISSION, DULCOLAX SUPPOSITORY WAS GIVEN LAST PM. EDEMA TO EXTREMITIES. TEDS/HEEL PROTECTORS IN USE. HR 112. BP 109/63. TUBE FEED REMAINS AT 20CC/HR.
--- NOTE | 2018-03-15 20:59 | NUR ---
MEDICATED WITH VERSED PER ORDER PATIENT VERY RESTLESS.
--- NOTE | 2018-03-15 22:09 | NUR ---
PATIENT A LITTLE MORE RELAXED. VERSED HELPED EARLIER.
[2018-03-16] VITALS (10 sets, daily range): BP systolic 110–147; BP diastolic 66–88
[2018-03-16 05:29] LABS: BASO # 0.1 10*3/uL (0.0-0.1); BASO % 0.4 % (0.0-1.0); EOS % 0.1 % (1.0-4.0); HEMATOCRIT 51.5 % (42.0-52.0); HEMOGLOBIN 16.1 g/dl (14.0-18.0); LYMPH # 2.4 10*3/uL (1.3-4.4); LYMPH % 19.5 % (27.0-41.0); MEAN CELL VOLUME 89.7 fl (80.0-94.0); MEAN CORPUSCULAR HGB CONC 31.3 g/dl (33.0-37.0); MEAN PLATELET VOLUME 10.5 fl (9.6-12.3); MONO % 8.5 % (3.0-9.0); NEUT # 8.6 10*3/uL (2.3-7.9); NEUT % 69.9 % (47.0-73.0); PLATELET COUNT AUTOMATED 169 10*3/uL (130-400); RED BLOOD COUNT 5.74 10*6/uL (4.50-5.90); WHITE BLOOD COUNT 12.2 10*3/uL (4.8-10.8)
--- NOTE | 2018-03-16 05:30 | NUR ---
MEDICATED WITH VERSED. EFFECTIVE.
[2018-03-16 05:46] LABS: ALKALINE PHOSPHATASE 45 U/L (45-117); BUN 39 mg/dl (7-24); CHLORIDE 102 mmol/L (98-107); CREATININE 1.01 mg/dL (0.70-1.30); PHOSPHOROUS 4.1 mg/dL (2.5-4.9); POTASSIUM 5.6 mmol/L (3.5-5.1); SGOT/AST 25 IU/L (3-35); SGPT/ALT 26 U/L (12-78); SODIUM 144 mmol/L (136-145); TOTAL PROTEIN 6.2 gm/dL (6.4-8.2)
[2018-03-16 07:01] LABS: ABG BASE EXCESS 8.3 mmol/L (-2.0-2.0); ABG HCO3 35.1 mmol/l (22-26); ABG O2 SATURATION 95.3 % (95-97); ARTERIAL BLOOD GAS PCO2 55.4 mmHg (35-45); ARTERIAL BLOOD GAS PH 7.415 (7.35-7.45); ARTERIAL BLOOD GAS PO2 78.3 mmHg (80-90)
--- NOTE | 2018-03-16 08:47 | NUR ---
VERSED NEEDED FOR ADDITIONAL SEDATION, PT RESTLESS, ZOFRAN GIVEN FOR HYPO PERISTALSIS ?NAUSEA OR POTENTIAL UPSET STOMACH, TYLENOL FOR POTENTIAL ACHES AND PAINS, REMAINS INTUBATED, ON DIPROVAN AT 50, AND ,AINATINING, BUT DOES DESAT EASILY EVEN WHEN RUSSELL IS BEING CHANGED, TURNED AND REPOSITIONED
--- NOTE | 2018-03-16 09:27 | NUR ---
DOCULAX SUPP GIVEN FOR NO BM SINCE VENTED
--- NOTE | 2018-03-16 10:00 | NUR ---
VISITORS AT BEDSIDE WITH COPIOUS AMOUNT OF VERY NOXIOUS PERFUME, PTS DOOR SHUT TO PROTECT OTHER PTS IN THE ICCU
--- NOTE | 2018-03-16 10:20 | NUR ---
FAN IN ROOM TURNED OFF BY STAFF, PTS IN OTHERS ROOM ARE C/O STRONG SMELL
--- NOTE | 2018-03-16 11:10 | NUR ---
SEDATION VACATION, PT FULLY AWAKE, NODDING HEAD, SON AT BEDSIDE, PT BEING MODERATELY COOPERATIVE
[2018-03-16 12:11] LABS: ACID FAST SPEC PROCESSING Concentration (.)
--- NOTE | 2018-03-16 13:13 | NUR ---
SEDATION HAS BEEN OFF, PLACED ON CPAP BY DR CAMPUZANO
--- NOTE | 2018-03-16 13:50 | NUR ---
pt switched to cpap by dr parker
--- NOTE | 2018-03-16 14:00 | NUR ---
DOUCOLAX HAS BEEN EFFECTIVE
--- NOTE | 2018-03-16 14:48 | NUR ---
PT BEING VERY DIFFICULT DURING THIS CPAP WEANING
[2018-03-16 15:14] LABS: ABG BASE EXCESS 10.4 mmol/L (-2.0-2.0); ABG HCO3 36.7 mmol/l (22-26); ABG O2 SATURATION 94.8 % (95-97); ARTERIAL BLOOD GAS PCO2 54.2 mmHg (35-45); ARTERIAL BLOOD GAS PH 7.445 (7.35-7.45)
--- NOTE | 2018-03-16 15:41 | NUR ---
EXTUBATED TO BIPAP, TOLERATED FAIRLY WELL EXPLANATION GIVEN TO PT AND FAMILY CONCERNING BIPAP RESTRICTIONS-BEING STRICT NPO FOR NOW, ABGS IN 2 HOURS
[2018-03-16 17:38] LABS: ABG BASE EXCESS 8.8 mmol/L (-2.0-2.0); ABG HCO3 34.7 mmol/l (22-26); ARTERIAL BLOOD GAS PCO2 52.4 mmHg (35-45); ARTERIAL BLOOD GAS PH 7.436 (7.35-7.45); ARTERIAL BLOOD GAS PO2 68.6 mmHg (80-90)
--- NOTE | 2018-03-16 18:22 | NUR ---
REPEAT ABGS HAVE BEEN CALLED TO DR CAMPUZANO, NO NEW ORDERS, CONTINUE BIPAP
--- NOTE | 2018-03-16 20:05 | NUR ---
PT. RESTLESS AT TIMES. HEP LOCK IN RA AND RAN ASYMPT. LUNGS DIMINISHED BILAT, PULSE OX 95% ON BIPAP 45%. ABDOMEN SOFTLY DISTENDED AND NORMO. NO PERIPHERAL EDEMA NOTED. OROZCO DRAINING A CLEAR YELLOW URINE. RESP. EASY AND REG, NO DISTRESS. DRESSING TO LEFT ARM INTACT. SILVIA WELLS RN
--- NOTE | 2018-03-16 21:14 | NUR ---
PT. GIVEN BED BATH AND BED LINEN CHANGED, TOLERATED WELL. SILVIA WELLS RN
--- NOTE | 2018-03-16 21:16 | NUR ---
PT. GIVEN RESTORIL AT 2104 PER PTS REQUEST FOR SLEEP AIDE. SILVIA WELLS RN
--- NOTE | 2018-03-16 22:04 | NUR ---
PT. SLEEPING, RESTORIL EFFECTIVE.
[2018-03-17] VITALS: BP 149/86
[2018-03-17 04:00] VITALS: BP 117/79
[2018-03-17 07:41] LABS: BASO # 0.1 10*3/uL (0.0-0.1); BASO % 0.4 % (0.0-1.0); EOS % 0.1 % (1.0-4.0); HEMOGLOBIN 16.3 g/dl (14.0-18.0); LYMPH # 2.1 10*3/uL (1.3-4.4); LYMPH % 14.7 % (27.0-41.0); MEAN CELL VOLUME 88.1 fl (80.0-94.0); MEAN CORPUSCULAR HGB 28.2 pg (27.0-31.0); MEAN PLATELET VOLUME 10.6 fl (9.6-12.3); MONO % 7.2 % (3.0-9.0); NEUT # 10.8 10*3/uL (2.3-7.9); NEUT % 76.1 % (47.0-73.0); PLATELET COUNT AUTOMATED 165 10*3/uL (130-400); RED BLOOD COUNT 5.79 10*6/uL (4.50-5.90); RED CELL DISTRI WIDTH 13.5 % (0-14.5); WHITE BLOOD COUNT 14.2 10*3/uL (4.8-10.8)
[2018-03-17 07:53] LABS: BUN 34 mg/dl (7-24); CHLORIDE 103 mmol/L (98-107); CREATININE 0.92 mg/dL (0.70-1.30); POTASSIUM 4.8 mmol/L (3.5-5.1); SODIUM 142 mmol/L (136-145)
[2018-03-17 08:00] VITALS: BP 120/60
--- NOTE | 2018-03-17 08:00 | NUR ---
PT HAS MAINTAIN ON BIPAP ALL, NIGHT, NOW DEMANDING TO COME OFF, PLACED ON NC3L THIS IS HIS HOME DOES, PT AWARE THAT IF HE DROPS BELOW 92%-WILL NEED TO GO BACK ON BIAPA AND IS AGREEABLE
--- NOTE | 2018-03-17 10:30 | NUR ---
case management visits with patient, patient was living at home with his , patient has home oxygen, portable tanks and a cpap from [facility] emergency department, he stated he was getting around fairly well at home, discussed with him a short term long-term for rehab prior to going back home, patient wasn't sure he wanted to do this, he wanted to discuss this with his family, patient stated that his is also very sick in a [facility]. case management/raw material planner will talk with patient at a later time
--- NOTE | 2018-03-17 11:10 | NUR ---
PHYSICAL THERAPY PAtient just put back on BiPap per nursing. Nursing requests attempt later this date. Thank you for this referral. Kiya Oh,PT
[2018-03-17 12:00] VITALS: BP 102/64
--- NOTE | 2018-03-17 13:14 | NUR ---
LAINE TURNER,KAYE Rodas [id number] Please refer to the physician's history and physical for past medical history, comorbid conditions, and allergies. Diagnosis: COPD WITH EXACERBATION,PNEUMONIA Neville Score: 15,AT RISK WOUND DESCRIPTIONS: Location of the wound: left arm below elbow Type of wound: skin tear Thickness: Partial Size: 0.4cm x 0.7cm x 0.1cm Tunneling: none Undermining: none Sinus Tract: none Presence of Exudate: Serosanguineous Amount: Light Color: Red Odor: None Periwound Skin Appearance: Normal Wound edges: approximated Pain (associated with wound): none at time of assessment How does patient state this happened? pt unaware of how this happened Surface the patient is resting on: Isoflex SKIN PREVENTION RECOMMENDATION: 1. Pressure redistribution support surface as appropriate 2. Elevate heels 3. Remove boots/TEDS every shift and reapply 4. Head of bed 30 degrees as tolerated 5. Assess nutrition and hydration 6. Manage moisture 7. Avoid the use of containment devices while in bed 8. Use absorptive products on surfaces limit layers of linens on bed 9. Turn and reposition every 1-2 hours in bed and every 1 hour in chair as tolerated 10. Weight shifts every 15 minutes while up in chair 11. Offloading with pillows or device to keep heels elevated off bed 12. Monitor skin at least every shift 13. Inspect under medical devices twice a day WOUND TREATMENT RECOMMENDATIONS: Continue current skin tear orders Recommend follow up for wound care in outpatient setting patient refused at this time.
--- NOTE | 2018-03-17 14:50 | NUR ---
Occupational Therapy evaluation completed on 5 with full eval to follow. Precautions include new O2 use, edema BUEs, ICCU, oxygen desaturation with minimal exertion, IV UE, fall risk; unsteady in standing. Patient is high complexity level [id number] via chart review, testing and evaluation. Recommend OT per POC and LTACH v.s. SNF to enable return home alone and independent. Thank you for this referral. Charley Farah OTr/L
--- NOTE | 2018-03-17 14:54 | NUR ---
PHYSICAL THERAPY PAtient evaluation to follow. Continue with PT as per plan of care with fall, 02 and acute debility precaution. DESATS quickly. May require LTAC versus SNF. PAtient is high complexity via chart review, tests and evaluation: [id number]. Thank you for this referral. Kiya Oh,PT
[2018-03-17 16:00] VITALS: BP 116/67
[2018-03-17 20:00] VITALS: BP 115/68
--- NOTE | 2018-03-17 21:22 | NUR ---
PT. REFUSING BED BATH AT THIS TIME. STATED HE IS TOO TIRED AND SHORT OF BREATH AT THIS TIME. SILVIA WELLS RN
[2018-03-18] VITALS: BP 123/74
[2018-03-18 04:00] VITALS: BP 123/77
[2018-03-18 04:45] LABS: HEMATOCRIT 51.1 % (42.0-52.0); HEMOGLOBIN 16.4 g/dl (14.0-18.0); MEAN CELL VOLUME 87.1 fl (80.0-94.0); MEAN CORPUSCULAR HGB 27.9 pg (27.0-31.0); MEAN CORPUSCULAR HGB CONC 32.1 g/dl (33.0-37.0); MEAN PLATELET VOLUME 10.6 fl (9.6-12.3); PLATELET COUNT AUTOMATED 146 10*3/uL (130-400); RED BLOOD COUNT 5.87 10*6/uL (4.50-5.90); RED CELL DISTRI WIDTH 13.4 % (0-14.5); WHITE BLOOD COUNT 13.1 10*3/uL (4.8-10.8)
[2018-03-18 05:18] LABS: ATYPICAL LYMPHS 3 % (0-0); PLATELET SUFFICIENCY LOW (NORMAL); TOTAL CELLS COUNTED 100 #CELLS
[2018-03-18 05:25] LABS: ALBUMIN 2.9 gm/dl (3.1-4.5); ALKALINE PHOSPHATASE 49 U/L (45-117); BUN 32 mg/dl (7-24); CHLORIDE 103 mmol/L (98-107); CREATININE 0.86 mg/dL (0.70-1.30); PHOSPHOROUS 4.8 mg/dL (2.5-4.9); POTASSIUM 4.3 mmol/L (3.5-5.1); SGOT/AST 26 IU/L (3-35); SGPT/ALT 33 U/L (12-78); SODIUM 143 mmol/L (136-145); TOTAL PROTEIN 5.8 gm/dL (6.4-8.2)
[2018-03-18 08:00] VITALS: BP 133/68
--- NOTE | 2018-03-18 08:27 | NUR ---
PT UP TO CHAIR. VSS. PT DENIES COMPLAINTS AT THIS TIME. NO ACUTE DISTRESS NOTED.
--- NOTE | 2018-03-18 09:30 | NUR ---
DR CAMPUZANO IN TO SEE PT.
--- NOTE | 2018-03-18 09:35 | NUR ---
OT NOTE Pt was seen this A.M. 1:1 for 20 minute OT session. Upon arrival pt was sitting upright in recliner with no body alarm on and presented with continous 4L-O2 via NC which he remained on throughout entire session and IV treatment. Pt identified by name and and had no complaints at this time. Pt completed multiple sit to stand transfers from chair level with Davey due to being unsteady and presenting with a "swaying" stance. Educated pt on standing slow and upon inital stand "collecting" himself to decrease risk of falls. Challenged pt's static standing tolerance needed for increased I in self care tasks and functional transfers and pt was able to tolerate aprox 3-4 minutes before sitting due to fatigue. Pt completed functional mobility around the room with CGA and use of w/w and pt required verbal instructions to correct walker safety due to lifting off the ground, being far away at times, and impulsive. Pt returned to his recliner where he was left with call light in hand, tray table in place, body alarm activated for safety and HR/SPO2 WFL. Continue with rec D/C plan to LTACH versus SNF. JAY Elizabeth/Homar
--- NOTE | 2018-03-18 09:59 | NUR ---
PHYSICAL THERAPY Patient presented to therapy in sitting position with IV INFUSING, TELMETRY ATTACHED OT PATIENT, AND O2 SAT AT 95% PRIOR TO THERAPY. Patient has no comnplaints of pain and says his breathing is much better. Patient agrees to therapy session. NO CHAIR ALARM PRESENT AT THIS TIME. Patient transferred STS to W/W with MIN A X 1. Patient stood at W/W with CGA X 1. Patient ambulated with W/W and CGA X 1 with 4 liters of spO2 VIA NASAL CANULA, PORTABLE DATA TECHNICAL LEAD connected, AND PUlse ox BEING MONITORED. Patient ambulated 80' x 1 around entire ICCU floor witH CGA X 1 aand other therapist monuvering O2 TANK and PORTABLE TELEMETRY DEVICE. Patient transferred back to sitting in bedside chair with MIN A X 1. Patient's 02 SATS dropped to 91% during gait , but he quickly recovered to 95% following ambulation. Patient's pulse was recorded as 114 following ambulation. Patient's telemetry wires were connected to main console AND O2 connected to wall outlet at 4 liters os spO2. CHAIR ALARM, WAS ATTACHED TO PATIENT AND CHAIR AFTER BEING TESTED TO ENSURE IT WAS WORKING. JAY SELLERS was witness to the chair alarm being tested and attached to chair and patient. Patient was left in bedside chair with call light within reach and chair alarm activated. Patient was 1:1 with this HEALTH CONSULTANT for 23 minutes total. MAIKEL SAAVEDRA HEALTH CONSULTANT
--- NOTE | 2018-03-18 10:30 | NUR ---
DR MORENO IN TO SEE PT. NEW ORDERS RECEIVED.
--- NOTE | 2018-03-18 10:48 | NUR ---
Recommend follow up for wound care in outpatient setting patient refused at this time.
--- NOTE | 2018-03-18 11:20 | NUR ---
PT WILL USE BIPAP AFTER LUNCH. SAT IS 96% WITH 4L/M. NO C/O. RN AWARE.
[2018-03-18 11:55] VITALS: BP 107/53
--- NOTE | 2018-03-18 15:05 | NUR ---
Shift chart check completed.
--- NOTE | 2018-03-18 15:21 | NUR ---
PT TRANSFERED TO [facility]. PT AMBULATED WITH WALKER AND ON 4L NC OXYGEN. PT SLIGHTLY SOB WITH THE EXERTION. PT REPORT GIVEN TO RECEIVING NURSE.
[2018-03-18 16:00] VITALS: BP 126/70
[2018-03-18 20:00] VITALS: BP 108/64
--- NOTE | 2018-03-18 22:45 | NUR ---
PT PLACED ON BIPAP
[2018-03-19] VITALS: BP 101/59
--- NOTE | 2018-03-19 05:54 | NUR ---
PATIENT RESTING IN BED AWAKE AT THIS TIME. BIPAP REMOVED. NO SIGNS OR SYMPTOMS OF DISTRESS NOTED. DENIES COMPLAINTS OF PAIN OR DISCOMFORT. WILL CONTINUE TO MONITOR. CALL LIGHT IN REACH.
--- NOTE | 2018-03-19 07:12 | NUR ---
Shift chart check completed.
[2018-03-19 07:17] LABS: HEMATOCRIT 49.6 % (42.0-52.0); HEMOGLOBIN 16.2 g/dl (14.0-18.0); MEAN CELL VOLUME 87.6 fl (80.0-94.0); MEAN CORPUSCULAR HGB 28.6 pg (27.0-31.0); MEAN CORPUSCULAR HGB CONC 32.7 g/dl (33.0-37.0); MEAN PLATELET VOLUME 10.9 fl (9.6-12.3); PLATELET COUNT AUTOMATED 147 10*3/uL (130-400); RED BLOOD COUNT 5.66 10*6/uL (4.50-5.90); RED CELL DISTRI WIDTH 13.6 % (0-14.5); WHITE BLOOD COUNT 14.4 10*3/uL (4.8-10.8)
[2018-03-19 07:46] LABS: ALBUMIN 2.7 gm/dl (3.1-4.5); ALKALINE PHOSPHATASE 49 U/L (45-117); BUN 26 mg/dl (7-24); CHLORIDE 105 mmol/L (98-107); CREATININE 0.71 mg/dL (0.70-1.30); PHOSPHOROUS 4.1 mg/dL (2.5-4.9); POTASSIUM 3.6 mmol/L (3.5-5.1); SGOT/AST 35 IU/L (3-35); SGPT/ALT 48 U/L (12-78); SODIUM 142 mmol/L (136-145); TOTAL PROTEIN 5.7 gm/dL (6.4-8.2)
[2018-03-19 08:00] VITALS: BP 116/60
[2018-03-19 08:11] LABS: PLATELET SUFFICIENCY NORMAL (NORMAL); TOTAL CELLS COUNTED 100 #CELLS
--- NOTE | 2018-03-19 08:50 | NUR ---
DR CAMPUZANO ROUNDED - OK TO DISCHARGE WHEN PRIMARY TEAM READY - ORDER TO ASSESS FOR HOME O2
--- NOTE | 2018-03-19 10:30 | NUR ---
OT NOTE Pt was seen this A.M. 1:! for 15 minute OT session. Upon arrival pt was sitting upright in recliner, pt identified by name and . Pt had no complaints at this time and presented to therapy with continous 2L-O2 via NC which he remianed on throughout entire session. Pt completed sit to stand transfer from chair level with CGA, upon inital rise pt had LOB due to being impulsive that required modA to correct. Pt completed functional mobility into the bathroom with CGA and use of w/w for UE support. Pt had multiple LOB that required Davey due to walking away without his walker and being impulsive. Pt transferred on/off standard commode with CGA. Pt then stood sink side while washing his hands with CGA. Pt then returned to recliner where he was left sitting upright in recliner with call light in hand, trya table in place, and body alarm on for safety. Continue with rec D/C plan to [facility] versus SNF. JAY Elizabeth/Homar
--- NOTE | 2018-03-19 10:57 | NUR ---
DR MADELINE KEITH
--- NOTE | 2018-03-19 11:00 | NUR ---
case management visits with patient, patient's son present, son wanted patient to go to a short term half-way for rehab prior to going back home, patient was inagreement with this, merchandise planner will talk with patient and family regarding choice of facilities
--- NOTE | 2018-03-19 11:30 | NUR ---
PT WAS ASSESSED FOR HOME OXYGEN. PT QUALIFIED PT AT REST SPO2 87-88, PLACED PT ON 2LNC SPO2 90% AT REST HR 100, RR 18, B/P 115/71 PT SPO2 90-91% ON 2L WITH AMBULATION PT AT REST SPO2 92-93% ON 2L, HR 103, RR 20, B/P 113/64 AT REST CASING SEWER NOTIFIED AND NOTIFIED
--- NOTE | 2018-03-19 11:42 | NUR ---
In to see patient, both sons at bedside; discussing discharge planning. Patient in agreement for skilled rehab. Provided a list of facilities and answered questions. Patient chose [facility]. Contacted facility and faxed referral. Waiting on review/acceptance; will require precert
[2018-03-19 12:00] VITALS: BP 114/62
--- NOTE | 2018-03-19 12:38 | NUR ---
DRESSING TO LEFT FOREARM CHANGED AND PICTURE TAKEN PATIENT HOPEFUL HE WILL GET DISCHARGED TODAY
--- NOTE | 2018-03-19 13:18 | NUR ---
PHYSICAL THERAPY Patient presented to therapy in sitting position with 2 liters of spO2 and report of feeling better overall. Patient says he is breathing much better today. Patient agrees to therapy session. Patient was identified by name and . Patient performed STS transfer with CGA X 1. Patient ambulated with W/W and CGA X 1 for 200' x 1 with 2 liters of spO2 and pulse ox recorded as dropping to 89% for one brief moment. Patient's O2 SATs stayed between 90% - 93% on 2 liters of spO2 via nasal canula. Patient transferred back to bedside chair and was left in sitting position with call light within reach and two visitors in room. Patient's Nurse informed of patients O2 sats while ambulating. Patient was 1:1 with this INDUSTRIAL ILLUMINATING ENGINEER for 15 minutes total. MAIKEL SAAVEDRA INDUSTRIAL ILLUMINATING ENGINEER
--- NOTE | 2018-03-19 15:46 | NUR ---
OCCUPATIONAL THERAPY CO-SIGN I approve of the Occupational Therapy notes written above. ZENIA KRAUSE OTR/Homar
[2018-03-19 16:00] VITALS: BP 123/78
[2018-03-19 20:00] VITALS: BP 110/69
--- NOTE | 2018-03-19 21:42 | NUR ---
PATIENT MEDICATED WITH RESTORIL FOR COMPLAINTS OF INSOMNIA. WILL CONTINUE TO MONITOR. CALL LIGHT IN REACH.
[2018-03-20] VITALS: BP 123/61
--- NOTE | 2018-03-20 07:05 | NUR ---
BEDSIDE REPORRT GIVEN BY JOSI LAZCANO. PATIENT RESTING IN BED EYES CLOSED. NO S/S OF DISTRESS NOTED. RESP ERND. O2 ON VIA NC AT 2L. BED IS LOCKED IM LOWEST POSTION. CALL LIGHT WITHIN REACH.
--- NOTE | 2018-03-20 07:45 | NUR ---
Britney from [facility] stated patient is ambulating 200+ ft with therapy and doesn't qualify for snf stay. Will notify hospitalists office.
[2018-03-20 07:56] VITALS: BP 112/64
--- NOTE | 2018-03-20 08:05 | NUR ---
PT ASSESSMENT COMPLETTED AT THIS TIME. PT VOICED NO CONCERNS. BREATHING TREATMENT IN PLACE. DENIES PAIN OR DISCOMFORT. NO S/S OF DISTRESS. CALL LIGHT WITHIN REACH.
--- NOTE | 2018-03-20 08:29 | NUR ---
ASSESSMENT COMPLETED AND DOCUMENTED. PT SITTING IN CHAIR. O2 IN PLACE, NO SIGNS OF DISTRESS. JOSE LUIS IV SITE LEAKING. DC AT THIS TIME. CATH INTACT. PT TOLERATED WELL. JOSSELYN GRANTCC
--- NOTE | 2018-03-20 08:48 | NUR ---
OT NOTE Pt was seen this A.M. 1:1 for 15 minute OT session. Upon arrival pt was sitting upright in recliner with no body alarm activated. Pt identified by name and and had no complaints at this time. Pt presented to therapy with continous 3L-O2 via NC which he remained on throughout entire session. Pt completed sit to stand transfer from chair level with CGA for safety due to pt being impulsive and increasing risk of falls. Functional mobility completed into the bathroom with SBA and use of w/w for UE support. Throughout pt required constant verbal prompts for improving his walker safety due to being impulsive, staying distance behind it, and walking away without it. Pt transferred on/off standard commode with SBA and use of grab bar. Pt then stood sink side while washing his face and hands with SBA. Pt had two LOB throughout that required Davey when standing without UE support. Functional mobility completed back to recliner where he was left sitting upright with call light in hand, tray table in place, and phone in reach. Continue with rec D/C plan to [facility] versus SNF. JAY Elizabeth/Homar
--- NOTE | 2018-03-20 09:00 | NUR ---
In to see patient to discuss going home with visitin nursing and PT. Patient doesn't qualify for usp at this time. Patient agreeable to home health, when provided a list a facilities, patient requested [facility]. Will need new order for home health nursing, PT and OT.
--- NOTE | 2018-03-20 09:00 | NUR ---
case management visits with patient, son present, patient will be going home today. [facility] notified of patient going home today, patient also needed a wheeled walker at home, called [facility], spoke to Kelle, [facility] will deliver the wheeled walker to the patient at home. no other needs at this time
--- NOTE | 2018-03-20 09:53 | NUR ---
PHYSICAL THERAPY Patient presented to therapy in supine with head of bed elevated and 3 liters of spO2 via nasal canula. Patient has report of feeling much better. Patient agrees to therapy session. Patient was identified by name and . Patient performed supine sitting at EOB transfer with SBA. Patient STS transfer with SBA. Patient ambulated with W/W and Close Supervision for 400' x 1 with 3 liters of spO2 with O2 SAT not dropping below 94% the entire distance. Patient transferred into bedside chair and his O2 SAT was measured and recorded as 95%. Patient had NO difficulty with the gait distance including NO SOB, LOB, or other diffculty. Patient was left in sitting position with chair alarm attached, call light within reach, and tray table near patient. Patient's chair alarm activated and both this AUTOMOBILE MECHANIC MOTOR and JAY SELLERS were witness to the chair alarm being put on patient by this AUTOMOBILE MECHANIC MOTOR. Patient was 1:1 with this AUTOMOBILE MECHANIC MOTOR for 20 minutes total. Patient is recommended for HH PT upon discharge. MAIKEL SAAVEDRA AUTOMOBILE MECHANIC MOTOR
[2018-03-20] MEDS ORDERED: PREDNISONE10 MG PO (10:23)
--- NOTE | 2018-03-20 10:42 | NUR ---
RIGHT AC IV DC DUE TO DISCHARGE. PT TOLERATED WELL. PT SITTING IN ROOM WAITING FOR CASE MANAGEMENT. CALL BROWN IN REACH. JOSSELYN CALDERÓN SPNRCC
--- NOTE | 2018-03-20 12:20 | NUR ---
Discharge instructions reviewed with patient/familY. Patient receptive and verbalizes understanding. Follow-up care arranged, AND TO BE ARRANGED BY PATIENT FOR PCP . Written instructions given to patient/family. INSTRUCTED ON OXYGEN USE. IV CATHETER REMOVED BY AD STUDENT NURSE. WELLNIGTON UMANA
--- NOTE | 2018-03-20 12:30 | NUR ---
PT DISCHARGED TO HOME VIA W/C WITH FAMILY AND HOME O2. NO VOICED C/O OR NO S/S OF DISTRESS AT THIS TIME.
--- NOTE | 2018-03-20 16:09 | NUR ---
PHYSICAL THERAPY CO-SIGN I approve of the Phyical Therapy notes written above. ANJEL SALINAS PT
--- NOTE | 2018-03-24 07:49 | NUR ---
OCCUPATIONAL THERAPY CO-SIGN I approve of the Occupational Therapy notes written above. LOU PORRAS
[2018-04-24] MEDS ORDERED: 24 HOUR ALLER15.8 ML NAS (17:06)
[2018-04-24] MEDS ORDERED: LIPITOR80 MG PO (17:07)
[2018-04-24] MEDS ORDERED: METOPROLOL TART50 M1 PO (17:08)
[2018-04-27] MEDS ORDERED: VITAMIN D32000 UNI1 PO (16:51)
[2018-04-27] MEDS ORDERED: LOPRESSOR25 MG PO (16:51)
[2018-04-27] MEDS ORDERED: LASIX40 MG PO (16:51)
[2018-04-27] MEDS ORDERED: XARE20MG PO (16:56)
[2018-04-30 09:12] LABS: ACID FAST CULTURE Negative (.)
[2018-05-24] MEDS ORDERED: LASIX20 MG PO (18:41)
[2018-05-24] MEDS ORDERED: LIPITOR40 MG PO (18:45)
[2018-06-06] MEDS ORDERED: KLOR-CON M2020 ME1 PO (10:52)
[2018-06-06] MEDS ORDERED: PROPAFENONE HC150 MG PO (10:52)
[2018-06-06] MEDS ORDERED: AMINOPHYLLIN200 MG PO (10:52)
[2018-06-06] MEDS ORDERED: LOPRESSOR25 MG PO (10:52)
[2018-06-06] MEDS ORDERED: DIGOXIN250 MCG PO (10:52)
== END 2018-03-20 12:45 | disposition home health service (06) | DRG 870 ==
LOC: ED 07:46 → ICCU 09:11 → EDHOLD 09:11 → 4E 09:41 → ICCU 03-11 07:24 → 4E 03-18 14:47
PROVIDERS: Emergency Medicine; Internal Medicine; Internal Medicine Critical Care Medicine; Internal Medicine Nephrology; Student in an Organized Health Care Education/Training Program; ADMIT Internal Medicine
PROC: 5A1955Z Respiratory Ventilation, Greater than 96 Consecutive Hours (ICD-10-PCS; principal; 2018-03-11)
PROC: 0BH17EZ Insertion of Endotracheal Airway into Trachea, Via Natural or Artificial Opening (ICD-10-PCS; principal; 2018-03-11)
PROC: 5A09357 Assistance with Respiratory Ventilation, Less than 24 Consecutive Hours, Continuous Positive Airway Pressure (ICD-10-PCS; principal; 2018-03-11)
PROC: 0BC78ZZ Extirpation of Matter from Left Main Bronchus, Via Natural or Artificial Opening Endoscopic (ICD-10-PCS; 2018-03-15)
PROC: 0BC48ZZ Extirpation of Matter from Right Upper Lobe Bronchus, Via Natural or Artificial Opening Endoscopic (ICD-10-PCS; 2018-03-15)
PROC: 0BC88ZZ Extirpation of Matter from Left Upper Lobe Bronchus, Via Natural or Artificial Opening Endoscopic (ICD-10-PCS; 2018-03-15)
PROC: 0BC68ZZ Extirpation of Matter from Right Lower Lobe Bronchus, Via Natural or Artificial Opening Endoscopic (ICD-10-PCS; 2018-03-15)
PROC: 0BCB8ZZ Extirpation of Matter from Left Lower Lobe Bronchus, Via Natural or Artificial Opening Endoscopic (ICD-10-PCS; 2018-03-15)
PROC: 0BC38ZZ Extirpation of Matter from Right Main Bronchus, Via Natural or Artificial Opening Endoscopic (ICD-10-PCS; 2018-03-15)
PROC: 0BC58ZZ Extirpation of Matter from Right Middle Lobe Bronchus, Via Natural or Artificial Opening Endoscopic (ICD-10-PCS; 2018-03-15)
PROC: 0BC98ZZ Extirpation of Matter from Lingula Bronchus, Via Natural or Artificial Opening Endoscopic (ICD-10-PCS; 2018-03-15)
PROC: 0BC18ZZ Extirpation of Matter from Trachea, Via Natural or Artificial Opening Endoscopic (ICD-10-PCS; 2018-03-15)
PROC: 5A09357 Assistance with Respiratory Ventilation, Less than 24 Consecutive Hours, Continuous Positive Airway Pressure (ICD-10-PCS; 2018-03-16)
PROC: 5A09357 Assistance with Respiratory Ventilation, Less than 24 Consecutive Hours, Continuous Positive Airway Pressure (ICD-10-PCS; 2018-03-18)
DX: A41.9 Sepsis, unspecified organism (principal); N17.0 Acute kidney failure with tubular necrosis; J18.1 Lobar pneumonia, unspecified organism; J96.22 Acute and chronic respiratory failure with hypercapnia; J96.21 Acute and chronic respiratory failure with hypoxia; J44.1 Chronic obstructive pulmonary disease with (acute) exacerbation; J44.0 Chronic obstructive pulmonary disease with (acute) lower respiratory infection; E87.2 Acidosis; I47.1 Supraventricular tachycardia; E87.3 Alkalosis; I25.10 Atherosclerotic heart disease of native coronary artery without angina pectoris; K76.0 Fatty (change of) liver, not elsewhere classified; G47.33 Obstructive sleep apnea (adult) (pediatric); E11.65 Type 2 diabetes mellitus with hyperglycemia; E11.51 Type 2 diabetes mellitus with diabetic peripheral angiopathy without gangrene; N28.1 Cyst of kidney, acquired; R93.2 Abnormal findings on diagnostic imaging of liver and biliary tract; E78.5 Hyperlipidemia, unspecified; I10 Essential (primary) hypertension; D75.1 Secondary polycythemia; J20.9 Acute bronchitis, unspecified; D72.821 Monocytosis (symptomatic); D72.810 Lymphocytopenia; E87.5 Hyperkalemia; R21 Rash and other nonspecific skin eruption; R16.1 Splenomegaly, not elsewhere classified; F17.210 Nicotine dependence, cigarettes, uncomplicated; E66.01 Morbid (severe) obesity due to excess calories; T38.0X5A Adverse effect of glucocorticoids and synthetic analogues, initial encounter; Y92.89 Other specified places as the place of occurrence of the external cause; Z71.6 Tobacco abuse counseling; Z79.4 Long term (current) use of insulin; Z87.442 Personal history of urinary calculi; Z95.5 Presence of coronary angioplasty implant and graft; Z82.49 Family history of ischemic heart disease and other diseases of the circulatory system; I25.2 Old myocardial infarction; Z80.0 Family history of malignant neoplasm of digestive organs; Z79.82 Long term (current) use of aspirin; Z79.899 Other long term (current) drug therapy; Z68.37 Body mass index [BMI] 37.0-37.9, adult

== ENCOUNTER → 2021-04-03 | Outpatient (CLI) | payer MEDICARE ==
[~2021-04-03] MED LIST changes: +24 HOUR ALLER15.8 ML NAS; +AMINOPHYLLIN200 MG PO; +DIGOXIN250 MCG PO; +KLOR-CON M2020 ME1 PO; +LASIX40 MG PO; +LIPITOR40 MG PO; +LIPITOR80 MG PO; +METOPROLOL TART50 M1 PO; +VITAMIN D32000 UNI1 PO; +XARE20MG PO
== END ==
LOC: RAD 14:36
PROVIDERS: ATTEND Chiropractor
DX: M54.50 Low back pain, unspecified (principal); M25.78 Osteophyte, vertebrae